=== PATIENT | male | born 1975 | race Caucasian/White ===

== ENCOUNTER 2020-03-24 09:01 | Inpatient (IN) | payer SELFPAY ==
[2020-03-24] MEDS ORDERED: Lorazepam 2 MG/ML VIAL ONE ×2 (09:18→16:02)
--- NOTE | 2020-03-24 09:34 | RAD ---
Exam: Chest one view HISTORY:Dyspnea Comparison: None FINDINGS: Cardiac silhouette: Normal Aorta: Unremarkable Pulmonary vessels: Normal Costophrenic angles: Clear LUNGS: No masses or consolidation. Pneumothorax: None Osseous abnormalities: None IMPRESSION: No acute cardiopulmonary process.
[2020-03-24 10:01] LABS: Hemoglobin 5.5 g/dL (14.0-18.0); INR-International Normal Ratio 2.1; Mean Corpuscular HGB CONC 32.6 g/dL (32.0-36.0); Mean Corpuscular Hemoglobin 37.4 pg (27.0-31.0); Mean Platelet Volume 11.1 fL (7.4-10.4); PTT 34.2 sec (22.9-36.1); Platelet Count 264 thou/uL (130-400); Prothrombin Time 23.6 sec (12.0-14.7); RBC Distribution Width 13.1 % (11.5-14.5); Red Blood Cell (RBC) Count 1.48 mill/uL (4.70-6.10); White Blood Cell (WBC) Count 40.1 thou/uL (4.8-10.8)
[2020-03-24 10:16] LABS: ALT (SGPT) 189 U/L (8-55); AST (SGOT) 385 U/L (5-34); Albumin 2.6 g/dL (3.5-5.0); Alkaline Phosphatase 103 U/L (40-110); BUN (Urea Nitrogen) 85 mg/dL (8.9-20.6); Bilirubin, Total 1.2 mg/dL (0.2-1.2); CK (CPK) 396 U/L (30-200); Calc. Creatinine Clearance 0 mL/min (70-130); Calcium 7.9 mg/dL (7.8-10.44); Chloride 91 mmol/L (98-107); Glucose 73 mg/dL (70-105); Lipase 192 U/L (8-78); Protein, Total 5.6 g/dL (6.0-8.3); Sodium 137 mmol/L (136-145)
[2020-03-24] MEDS ORDERED: Rocuronium Bromide 10 MG/ML (10ML VIAL) ONE (10:18)
[2020-03-24 10:22] LABS: Band 2 % (5-11); Crenated RBC SLIGHT = 1-5 cells (100X) (None Seen); Hypochromia SLIGHT = 6-15 cells (100X) (0-5/hpf); Large Platelets SLIGHT; Lymphocytes 13 % (21-51); MDiff Complete? YES; Metamyelocyte 1 % (0-0); Microcytosis SLIGHT = 6-15 cells (100X) (0-5/hpf); Monocytes 9 % (0-10); Neutrophil 75 % (42-75); Nucleated RBC 2 % (0); Platelet Morphology Comment Appears Adequate; Polychromasia SLIGHT = 2-3 cells (100X) (0-2/hpf); Reflex for Review?? YES; Toxic Granulation SLIGHT
[2020-03-24 10:26] LABS: Carbon Dioxide Less than 8 mmol/L (22-29)
[2020-03-24] MEDS ORDERED: EPINEPHrine 1 MG/10 ML Abboject SYRINGE ONE (10:31)
[2020-03-24] MEDS ORDERED: Pantoprazole 40 MG VIAL ONE (10:39)
[2020-03-24 10:45] LABS: CKMB 8.3 ng/mL (0-6.6)
[2020-03-24] MEDS ORDERED: Fentanyl 100 MCG/2 ML VIAL ONE (10:59)
[2020-03-24] MEDS ORDERED: Pantoprazole 80 MG, Admixture Fee 1 EACH in Sodium Chloride 0.9% 100 ML IVPB SCH (11:00)
[2020-03-24] MEDS ORDERED: Octreotide Acetate 1,250 MCG in Sodium Chloride 0.9% 250 ML 250 ML IVPB SCH (11:00)
--- NOTE | 2020-03-24 11:10 | RAD ---
Exam: Chest one view HISTORY:Central line placed Comparison: 03/24/2020 FINDINGS: Lines and tubes: Interval placement endotracheal tube, nasogastric tube and left-sided subclavian vas cular catheter. Cardiac silhouette: Normal Aorta: Unremarkable Pulmonary vessels: Normal Costophrenic angles: Clear LUNGS: No masses or consolidation. Pneumothorax: None Osseous abnormalities: None IMPRESSION: 1. Interval placement of lines and tubes as above. Otherwise, no significant interval change.
--- NOTE | 2020-03-24 11:15 | RAD ---
Exam: One view pelvis HISTORY: Patient fell 3 days ago. Pain. FINDINGS: Limited evaluation right femoral neck and right acetabulum. The possibility of a femoral ne ck/acetabular injury is raised. Limited evaluation of left femoral neck. Pelvic CT is recommended IMPRESSION: Pelvic CT is recommended.
[2020-03-24 11:27] LABS: Actual Bicarbonate (HCO3a) 4.8 mEq/L (22-28); Analyzer IN Cardio ER; Base Excess (BEa) -29.2 mEq/L (-2.0 to +3.0); CO2 Tension 33.5 mmHg (35.0-45.0); Calcium, Ionized (arterial) 0.92 mmol/L (1.12-1.30); Carboxyhemoglobin (COHb) 0.2 gm% (0.0-3.0); Potassium - ABG Lab 4.32 mmol/L (3.70-5.30)
[2020-03-24 11:31] LABS: O2 Tension (PaO2), arterial 618.6 mmHg (80.0-100.0); Puncture Site LRA; pH, Arterial 6.77 (7.35-7.45)
[2020-03-24 11:33] LABS: ALV-art Gradient 52.525 mmHg (0-20)
--- NOTE | 2020-03-24 11:33 | CT ---
Exam: Chest CT without contrast Abdomen CT without contrast Pelvic CT without contrast Thoracic and lumbar spine CT without contrast HISTORY: Patient fell 2 days ago. COVID exposure. Black stools. Correlation: None COMPARISON: None FINDINGS: Chest CT: Mediastinum: Limited evaluation by the absence of IV contrast. No mass, lymphadenopathy or hematoma. Aorta: Normal caliber. No periaortic fat stranding Heart: Normal heart Trachea and central bronchi: Endotracheal tube is identified, terminating above the orion. Pleural spaces: No pleural effusion Right lung: Right apical bleb. No consolidation or contusion. Minimal atelectatic change Left lung:Left apical blebs. No consolidation or contusion. Minimal atelectatic change Pneumothorax: None Abdomen CT: Gallbladder: Unremarkable Portal vein: Patent Solid organs: Limited evaluation by the absence of IV contrast. Heterogeneous attenuation of the live r likely due to areas of fatty infiltration and fatty sparing. No evidence of posttraumatic change in the solid organs. Technique limits evaluation. Lymphadenopathy: No gastrohepatic, retrocrural or periportal lymphadenopathy Kidneys: Bilaterally no obstructive uropathy. Mesentery: No mass, lymphadenopathy, free air or free fluid Alimentary canal: Limited evaluation by the absence of oral contrast. No evidence of a small bowel ob struction. Nasogastric tube terminates in the stomach. Normal-appearing ileocecal junction. Caliber appendix. There does appear to be some mucosal thickening with fatty infiltration of the mucosa invol ving the cecum, ascending colon and transverse colon. There is still fatty infiltration mucosa without significant mucosal thickening involving the descending colon. Occasional diverticulum in the descending colon. Pelvis CT: No mass, nephropathy, free air or free fluid. Presacral fat is preserved. Unremarkable urinary bladder. Osseous structures: CHEST: Sternum and clavicles are intact. Scapula are intact. There does not appear to be a right or l eft rib fracture. Pelvis: Sacral alar preserved. There are degenerative changes in the left and right SI joint. Intact bony pelvis. Obturator rings are intact. Contour of bilateral femoral heads and necks are maintained. No fracture Thoracic and lumbar spine CT: No fracture or malalignment. IMPRESSION: 1. No post traumatic change in the chest, abdomen or pelvis 2. Fatty infiltration of the colonic mucosa. There is evidence of mucosal thickening involving the ri ght hemicolon. Correlate for infectious or inflammatory colitis. Consider nonemergent colonoscopy. 3. There is a fatty sparing and hepatic steatosis in the liver.
[2020-03-24 11:34] LABS: Acetaminophen Less than 6.0 mcg/mL (10.0-30.0); Alcohol Less than 10 mg/dL (Less than 10); Salicylate Less than 8.0 mg/dL (15.0-30.0)
[2020-03-24] MEDS ORDERED: Vancomycin 1 GM/200 ML BAG ONE (11:44)
[2020-03-24] MEDS ORDERED: Cefepime 2 GM VIAL ONE (11:44)
[2020-03-24] MEDS ORDERED: Sodium Bicarb 50 MEQ/50 ML Abboject 8.4% SYRINGE ONE ×3 (11:44→12:57)
[2020-03-24 11:52] LABS: Bilirubin Negative (Negative); Blood, Urine 2+ (Negative); Clarity Extra Turbid (Clear); Glucose, Urine (Dipstick) Normal (Negative); Ketone, Urine 10 mg/dL (Negative); Leukocyte Negative Leu/uL (Negative); Nitrite Negative (Negative); Protein, Urine (Dipstick) 100 mg/dL (Neg-Trace); Specific Gravity, Urine 1.018 (1.002-1.036); Squamous Epithelial 0-3 HPF (0-3); Urobilinogen Normal mg/dL (Less than 2); WBC/HPF 0-3 HPF (0-3); pH, Urine 5.5 (5.0-9.0)
[2020-03-24] MEDS ORDERED: Ondansetron PF 4 MG/2 ML Vial IVP PRN ×2 (11:53→13:15)
[2020-03-24 11:54] LABS: SARS-CoV-2 NAA Rapid Test Not Detected (NotDetected)
[2020-03-24 11:57] LABS: Bacteria/HPF None Seen HPF (None Seen)
[2020-03-24 11:58] LABS: Amphetamine Not Detected (NotDetected); Barbiturates Screen Not Detected (NotDetected); Benzodiazepine Screen Not Detected (NotDetected); Cocaine Metabolite Screen Not Detected (NotDetected); Medtox Control Line Valid? VALID (VALID); Medtox Reader # READER 1; Methadone Not Detected (NotDetected); Methamphetamine Not Detected (NotDetected); Opiate Screen Not Detected (NotDetected); Oxycodone Screen Not Detected (NotDetected); Phencyclidine (PCP) Not Detected (NotDetected); THC/Cannabinoid Screen Not Detected (NotDetected); Tricyclic Screen Not Detected (NotDetected)
[2020-03-24 13:15] LABS: Troponin I 0.066 ng/mL (< 0.028)
[2020-03-24] MEDS ORDERED: Sodium Chloride 0.9% 1,000 ML IV SCH (13:15)
[2020-03-24] MEDS ORDERED: Ondansetron ODT 4 MG TAB SL PRN (13:15)
--- NOTE | 2020-03-24 14:58 | CON ---
DATE OF CONSULTATION: 03/24/2020 REASON FOR CONSULTATION: Upper GI bleeding. HISTORY OF PRESENT ILLNESS: Adair Puga is a 44 year old man who is being admitted to the ICU from the emergency department after presenting this morning. He has no known past medical or surgical history. His says he never goes to the doctor. He does take a lot of BC Powder and Aleve for arthritis pains multiple times per day. He also heavily drinks alcohol. She says he will go through about a half a gallon of whiskey on a daily basis and this has been his practice for a long time. Several days ago, he accidentally fell and had some bruising on the left side of his body. Shortly thereafter, he started having some melenic stools. She said his bowel movements have been jet black for the past several days. He started having some nausea and has had several episodes of dark emesis as well through this time. This morning, it became evident that he was a lot more ashen. He was very anxious. He was hypoxic and encephalopathic on presentation. When he presented to the emergency department, melena was found on rectal exam. Shortly after presentation, he had a drop in his blood pressures, and labs demonstrated hemoglobin of 5.5, INR 2.1, WBC 40.1, BUN 85, creatinine 4.75. He is acidotic with pH 6.77. COVID swab was negative. Because he was encephalopathic, yanking out his IVs, etc, he was sedated and endotracheally intubated. He got a central line. Orogastric tube was placed, and this has drawn out 800 mL so far of dark maroon gastric contents. He has had a few smaller melenic stools since arrival as well. He is being treated with massive transfusion protocol. He has already received 3 units of blood. He is getting some FFP and will get cryoprecipitate. He has been started on broad antibiotics with vancomycin, cefepime, and Levaquin. He was started on pantoprazole and octreotide infusions. The CT of the chest, abdomen, and pelvis demonstrated no evidence of free air. REVIEW OF SYSTEMS: Unable to obtain due to the patient being endotracheally intubated and sedated, encephalopathic on admission. PAST MEDICAL HISTORY: Alcohol abuse, arthritis. ALLERGIES: NO KNOWN DRUG ALLERGIES. OUTPATIENT MEDICATIONS: 1. Multivitamin daily. 2. BC Powder multiple times per day. 3. Aleve multiple times per day. SOCIAL HISTORY: The patient will drink about a half a gallon of whiskey per day. FAMILY HISTORY: Noncontributory. PHYSICAL EXAMINATION: VITAL SIGNS: Blood pressure 73/53, pulse 108, 100% oxygen saturation on ventilator. GENERAL: Critically ill, sedated and intubated. SKIN: He is pale. No jaundice. HEENT: Eyes, no scleral icterus. ENT, he is endotracheally intubated. Orogastric tube in place suctioning out some dark maroon fluid. LYMPH: No submandibular or supraclavicular lymphadenopathy. HEART: Regular, tachycardia. LUNGS: Clear to auscultation bilaterally. ABDOMEN: Nondistended. Bowel sounds hypoactive. EXTREMITIES: No peripheral edema. VESSELS: Radial pulses weak. NEUROLOGIC: The patient is sedated and intubated. LABORATORY STUDIES: WBC 40.1, hemoglobin 5.5, platelets 264, MCV 115. INR 2.1. Sodium 137, potassium 4.0, BUN 85, creatinine 4.75, chloride is 91, bicarb is less than 8. Total bilirubin 1.2, alkaline phosphatase 103, AST 385, ALT 189, albumin 2.6. The pH 6.77, PO2 of 618, pCO2 is 33.5, lipase 192, ammonia only 69. BNP only 34, CK-MB 8.3, troponin only 0.05. Urine drug screen negative. Serum salicylate, acetaminophen, and alcohol levels all negative. Flu and COVID swabs are negative. IMAGING STUDIES: Chest x-ray showed no acute processes. Pelvic x-ray shows possible right femoral and acetabular fractures. CT of the abdomen and pelvis demonstrates bilateral apical blebs. There is fatty liver. There is also some fatty infiltration of the colon, greater on the right than the left. No free air. ASSESSMENT AND PLAN: 1. Upper gastrointestinal bleed, acute, perhaps going on over the past 2 to 3 days. 2. Shock, hemorrhagic versus septic. 3. Elevated LFTs. 4. Alcohol abuse. 5. Chronic heavy nonsteroidal anti-inflammatory drugs use. The patient's presentation seems most consistent with hemorrhagic shock due to upper gastrointestinal bleeding over the past 2 to 3 days. He is quite ill and is getting massive transfusion protocol. Etiology of the bleed potentially could include ulcer bleed given his chronic nonsteroidal anti-inflammatory drugs use, but also consider possibility of variceal bleed with his chronic alcohol abuse. He is currently being stabilized and transferred to the ICU. Protonix and octreotide drips have been started appropriately as well as IV antibiotics. Continue with resuscitation efforts. We are going to plan for diagnostic EGD probably later this afternoon after discussion with ICU staff. Thank you for the consultation. Please call anytime with questions or concerns. Job ID: [id number] MTDD
[2020-03-24] MEDS ORDERED: Propofol 1,000 MG/100 ML VIAL IV ONE (15:22)
[2020-03-24 16:11] LABS: Anion Gap 39 mmol/L (10-20); BUN (Urea Nitrogen) 75 mg/dL (8.9-20.6); Calc. Creatinine Clearance 32 mL/min (70-130); Calcium 6.9 mg/dL (7.8-10.44); Carbon Dioxide 10 mmol/L (22-29); Chloride 95 mmol/L (98-107); Glucose 172 mg/dL (70-105); Potassium 3.6 mmol/L (3.5-5.1); Sodium 140 mmol/L (136-145)
[2020-03-24] MEDS ORDERED: Propofol BOLUS 1,000 MG/100 ML VIAL IV PRN (16:15)
[2020-03-24] MEDS ORDERED: DISCONTINUE PREVIOUS NARCOTIC PAIN MEDICATIONS AND BENZODIAZEPINES FS SCH (16:15)
[2020-03-24] MEDS ORDERED: Fentanyl BOLUS 250 ML IVPB PRN (16:15)
[2020-03-24] MEDS: Thiamine HCl 200 MG/2 ML VIAL SLOW IVP SCH (16:16)
[2020-03-24] MEDS: Multivitamins, Adult 10 ML, Folic Acid 1 MG, Thiamine HCl 100 MG in Dextrose 5 %-0.45 %... IV SCH (16:16)
[2020-03-24 16:17] LABS: Troponin I 0.199 ng/mL (< 0.028)
--- NOTE | 2020-03-24 16:57 | HP ---
CHIEF COMPLAINT: Black tarry stools as well as hematemesis. HISTORY OF PRESENT ILLNESS: A 44-year-old male without significant past medical history and has not seen healthcare provider for a long time, daily alcohol use, heavy drinks with whiskey, presenting with upper GI bleed. After Gagandeep, roughly 4 days ago, he was taking down the [place] tree when he fell and had an episode of hematemesis. Shortly after that, he had a black tarry stool. suggested that they should visit the hospital. However, patient said "we can go on Thursday." So for the last 2 days, he did have intermittently black tarry stool as well as hematemesis. On arrival to the ER, he is saturating 88% on room air. His heart rate is in 120s and blood pressure systolic 120. Rectal exam showed runny stool and quite bright red. In the ER, massive transfusion protocol initiated for a total of 4 units of pRBC. The patient was obtunded, intubated for acute hypoxic respiratory failure. An OG-tube inserted and 900 mL of dark blood emptied. He was given Protonix, octreotide as well as cefepime, vancomycin and Levaquin. CT abdomen and chest, no acute free air but fatty liver. His INR was 2.1. Mild elevation in transaminases. PH also was 7.7, mostly suggestive of metabolic abnormalities. The patient is intubated, will be transferring shortly to the unit. I gathered all this information through his , Ramandeep. REVIEW OF SYSTEMS: Not obtainable. PAST MEDICAL HISTORY: The patient probably has cirrhosis but undiagnosed at this time as the patient has not had any healthcare visit for a long time. SOCIAL HISTORY: Smokes daily. Drinks heavily whiskey. FAMILY HISTORY: Father this year with old age. Mother is alive and she has heart problems. PHYSICAL EXAMINATION: GENERAL: He is intubated currently. VITAL SIGNS: His saturations are around 100%. His blood pressure 122/74. On vent. CARDIOVASCULAR: Regular rate and rhythm. No murmurs appreciated. LUNGS: With anterior auscultation did not appreciate much abnormal sounds. ABDOMEN: Quite protuberant, distended, but soft and bowel sounds positive. EXTREMITIES: I did not appreciate any rash or pitting edema. NEUROLOGIC: No focal deficits. LABORATORY DATA: His initial hemoglobin is 5.5, platelets were 264 with WBC of 40.1. His chemistry panel showed a bicarb of 8, creatinine 4.75. CK is about 396, troponin 0.052, and lipase 192. AST 385, ALT 189, alkaline phosphatase 103. CT chest, abdomen, pelvis showed fatty infiltration of the colonic mucosa, hepatic steatosis in the liver. IMPRESSION AND PLAN: This is a 44-year-old male with a history of alcohol abuse, presenting with the following. 1. Hemorrhagic shock, requiring massive transfusion. 2. Upper GI bleed secondary to possibly variceal bleed versus peptic ulcer disease versus NSAID induced peptic ulcer disease. 3. Hypoxic respiratory failure. 4. Coagulopathy secondary to cirrhosis with underlying history of alcohol abuse. 5. Transaminase elevations, probably consistent with alcohol abuse with AST twice the ALT. 6. Acute kidney injury with a creatinine of 4.75. 7. Hypotension, currently not requiring pressors at the moment. 8. Alcohol abuse. 9. COVID negative. 10. Blood alcohol level is less than 10. 11. UA has crystals, but no bacteria, no leukocyte esterase or nitrite. 12. Elevated troponin secondary to acute hemorrhagic shock. 13. The patient has received bicarb infusion as well as octreotide and Protonix. We will continue with Protonix. He is getting an RBC transfusion. We will repeat H and H later this evening. Metabolic acidosis resolves once underlying Acuity improves. 14. We will provide low gentle hydration for kidney injury given that he is going to receive several blood products including fresh frozen plasma. 15. Acute pancreatitis with lipase of 192, again suggesting alcohol abuse. 16. CT abdomen did not show any abnormality in the gallbladder or pancreas. We will follow the clinical course. 17. A Pulmonary consult, GI, as well as Nephrology has been consulted. 18. Avoid any anticoagulants, NSAIDs including aspirin. 19. is Ramandeep, [phone]. 20. He is full code. Job ID: [id number] [facility]
[2020-03-24] MEDS: Lorazepam 2 MG/ML VIAL SLOW IVP PRN ×2 (17:37→23:50)
[2020-03-24] MEDS ORDERED: Norepinephrine 8 MG/0.9% NS 250 ML ONE (17:57)
--- NOTE | 2020-03-24 20:15 | OP ---
DATE OF PROCEDURE: 03/24/2020 This is a GI endoscopy note. ASSISTANCE SURGEON: None. PROCEDURE PERFORMED: EGD, diagnostic. INDICATIONS: 1. Acute upper gastrointestinal bleeding. 2. Acute blood loss anemia. MEDICATIONS: See ICU nursing record. FINDINGS: After discussion of the risks, benefits, and alternatives of the procedure, informed consent was obtained and witnessed. Pre-endoscopic cardiopulmonary examination was satisfactory. Time-out was performed before sedation was achieved. Sedation was achieved with nurse sedation protocol in the intensive care unit. The procedure was performed at the bedside in his room. A Pentax adult upper endoscope was placed into the oropharynx and passed through the cricopharyngeus under direct visualization. There was diffuse esophagitis throughout the esophagus, particularly severe in the distal 2/3 of the esophagus. I would classify this is LA grade D for at least the distal 12 cm of the esophagus down to 42 cm which is the area of the gastroesophageal junction. There is circumferential ulceration throughout this area. There are a few areas that had the appearance of tiny visible vessels. However, there were no high-risk stigmata of bleeding such as adherent clot or any active oozing from either of these areas in the very distal esophagus and therefore, no endoscopic therapy was applied. There was no esophageal varices noted. The endoscope was advanced down into the stomach. Forward and retroflexed views of the entire gastric mucosa were obtained. There was a mild amount of old blood within the gastric fundus, but frankly less than I expected. This was completely suctioned and good views of the gastric mucosa were obtained. There was diffuse gastritis throughout the entire stomach characterized by erythema and friability. Several areas of minor oozing and adherent blood scattered throughout the entire stomach. However, there were no large erosions or ulcerations noted within the stomach. I did not obtain biopsies on this examination. The endoscope was advanced through the pylorus and into the 1st, 2nd, 3rd portions of the duodenum. There was some generalized mucosal edema throughout this area and mild friability, but no bleeding lesion found in the duodenum. Retroflexed views in the stomach confirmed no evidence of any gastric varices. At this point, the upper endoscope was completely withdrawn and the patient allowed to recover. The patient tolerated the procedure well. There were no immediate postprocedure complications. IMPRESSION: 1. LA grade D severe erosive esophagitis with circumferential ulceration in the distal 2/3 of the esophagus. A couple of small visible vessels distally with no high-risk stigmata for rebleeding, no adherent clot, no endoscopic therapy applied. 2. Diffuse moderate to severe gastritis, though with no significant erosions or ulcerations noted within the stomach. 3. No esophageal or gastric varices noted. 4. No active bleeding on this examination. RECOMMENDATION: 1. Continue with the pantoprazole drip. 2. Octreotide can be discontinued. 3. Continue with antibiotics. 4. Continue to trend H and H, transfuse as needed. 5. GI will follow closely. Please call anytime with questions or concerns or if there is concern for rebleeding. 6. The patient is going to be at high risk for alcohol withdrawal/delirium tremens. 7. The patient is going to need to quit all alcohol use going forward. 8. It may be helpful to keep the head of the bed slightly elevated, from a reflux standpoint. Job ID: [id number]
[2020-03-24] MEDS: Pantoprazole 80 MG in Sodium Chloride 0.9% 100 ML IVPB SCH (20:25)
[2020-03-24] MEDS: Albumin 25% 25 GM/100 ML BOT IVPB SCH (23:43)
[2020-03-25] MEDS: Propofol 1,000 MG/100 ML VIAL IV PRN ×5 (00:26→22:04)
[2020-03-25] MEDS: fentaNYL Citrate/PF 2,000 MCG in Sodium Chloride 0.9% 60 ML IV SCH ×3 (00:34→23:34)
[2020-03-25 04:20] LABS: PTT 35.5 sec (22.9-36.1)
[2020-03-25 04:21] LABS: INR-International Normal Ratio 1.7; Prothrombin Time 20.6 sec (12.0-14.7)
[2020-03-25 04:29] LABS: ALT (SGPT) 1399 U/L (8-55); Albumin 3.1 g/dL (3.5-5.0); Alkaline Phosphatase 89 U/L (40-110); Bilirubin, Direct 1.5 mg/dL (0.1-0.3); Bilirubin, Total 2.1 mg/dL (0.2-1.2); Protein, Total 5.7 g/dL (6.0-8.3)
[2020-03-25 04:34] LABS: AST (SGOT) Greater than 3500 U/L (5-34)
[2020-03-25] MEDS: Albumin 25% 25 GM/100 ML BOT IVPB SCH ×4 (05:01→23:58)
[2020-03-25] MEDS: Norepinephrine 8 MG in Dextrose 5% in Water 242 ML IVPB PRN ×2 (06:26→22:05)
[2020-03-25] MEDS: Lorazepam 2 MG/ML VIAL SLOW IVP PRN ×4 (07:34→17:31)
[2020-03-25] MEDS: Pantoprazole 80 MG in Sodium Chloride 0.9% 100 ML IVPB SCH ×2 (09:52→20:05)
[2020-03-25] MEDS: Folic Acid 1 MG TAB PO SCH (10:32)
[2020-03-25 10:39] LABS: Hemoglobin 10.3 g/dL (14.0-18.0); Mean Corpuscular HGB CONC 36.3 g/dL (32.0-36.0); Mean Corpuscular Volume 90.8 fL (78.0-98.0); Mean Platelet Volume 9.7 fL (7.4-10.4); Platelet Count 127 thou/uL (130-400); RBC Distribution Width 15.8 % (11.5-14.5); Red Blood Cell (RBC) Count 3.13 mill/uL (4.70-6.10); White Blood Cell (WBC) Count 18.8 thou/uL (4.8-10.8)
[2020-03-25 10:47] LABS: Anion Gap 18 mmol/L (10-20); BUN (Urea Nitrogen) 76 mg/dL (8.9-20.6); Calc. Creatinine Clearance 39 mL/min (70-130); Calcium 7.2 mg/dL (7.8-10.44); Carbon Dioxide 25 mmol/L (22-29); Chloride 99 mmol/L (98-107); Glucose 133 mg/dL (70-105); Sodium 139 mmol/L (136-145)
[2020-03-25 10:56] LABS: Potassium 2.8 mmol/L (3.5-5.1)
[2020-03-25] MEDS ORDERED: Cefepime 1 GM in Sodium Chloride 0.9% 100 ML IVPB SCH (11:00)
[2020-03-25 11:11] LABS: Band 3 % (5-11); Hypochromia SLIGHT = 6-15 cells (100X) (0-5/hpf); Large Platelets SLIGHT; Lymphocytes 19 % (21-51); MDiff Complete? YES; Monocytes 5 % (0-10); Neutrophil 73 % (42-75); Nucleated RBC 4 % (0); Platelet Morphology Comment Appears Decreased; Polychromasia SLIGHT = 2-3 cells (100X) (0-2/hpf)
--- NOTE | 2020-03-25 11:52 | PRG ---
DATE OF SERVICE: SUBJECTIVE: Mr. Puga remains intubated in the ICU. Nursing reports he had only one small smear of melenic-appearing stool since his endoscopy yesterday. He responded well to initial transfusion with hemoglobin going up to 11.0, fairly stable this morning at 10.3. He is requiring high doses of sedation due to agitation and what is likely delirium tremens. OBJECTIVE: VITAL SIGNS: Temperature 99.1, got up to 99.7 last night, pulse 90, blood pressure 102/66, 100% oxygen saturation on ventilator. GENERAL: Critically ill, sedated, and intubated. HEART: Regular rate and rhythm. LUNGS: Clear breath sounds bilaterally. ABDOMEN: Nondistended. Does not withdraw to palpation. EXTREMITIES: No peripheral edema. LABORATORY STUDIES: WBC down to 18.8, hemoglobin stable at 10.3, platelets 127. INR 1.7. Sodium 139, potassium 2.8, BUN 76, creatinine down to 3.03, calcium 7.2, glucose 133, total bilirubin 2.1, direct bilirubin 1.5, alkaline phosphatase 89. AST shot up to greater than 3500, ALT shot up to 1399. Troponin 0.199. Albumin 3.1. ASSESSMENT AND PLAN: 1. Hemorrhagic shock, with severe upper gastrointestinal bleeding on admission, now resolved. 2. Acute blood loss anemia, good response to initial massive transfusion protocol, stable hemoglobin this morning at 10.3. 3. Severe erosive esophagitis with visible vessels, demonstrated on EGD yesterday. There is no further evidence of bleeding since endoscopy yesterday. No endoscopic therapy was applied. I did not see any varices. Octreotide can be discontinued. We will continue on the pantoprazole continuous infusion for now. Please do not place any nasogastric or orogastric tube at this time. 4. Shock liver. Note that he did have some degree of AST and ALT elevation on presentation consistent with alcoholic liver disease, but now more significant transamination in the context of presenting with hemorrhagic shock. This represents shock liver. Expect slow improvement with good hemodynamic support. 5. Alcohol abuse. 6. Likely alcoholic cirrhosis. The patient is going to need to quit drinking completely going forward. 7. Alcohol withdrawal. The patient is still requiring heavy doses of sedation. Management per Primary Service. Job ID: [id number]
--- NOTE | 2020-03-25 12:10 | CON ---
DATE OF CONSULTATION: 03/24/2020 he presented with melena and encephalopathy as well as hypotension. His pH was 6.77 surprisingly. He was subsequently intubated, sedated, and paralyzed, and has received a massive transfusion. We were consulted as he arrived in the Critical Care Unit. PAST MEDICAL HISTORY: Otherwise, unknown. SOCIAL HISTORY: He is a heavy drinker, not reportedly a daily smoker. ALLERGIES: REPORTS NO DRUG ALLERGIES. FAMILY HISTORY: Negative for lung disease in early age. REVIEW OF SYSTEMS: Cannot be obtained because of intubation. PHYSICAL EXAMINATION: VITAL SIGNS: Blood pressure 122/74, heart rate is 120, respiratory rate is 30. HEENT: Pupils are reactive. Sclerae are anicteric. NECK: Supple. LUNGS: Clear. HEART: Regular rhythm. ABDOMEN: Soft. EXTREMITIES: Without clubbing or cyanosis. He has trace edema. Hemoglobin went from 5.5 this morning to 11 at 1422. His pH has gone from 6.77 to over 7.2. At the time of this dictation, blood gas has not been entered in the computer. IMPRESSION: Significant GI bleeding with severe metabolic acidosis associated with hypotension, blood loss. This is improving with mechanical ventilation, bicarb, and volume resuscitation. We will follow Gastroenterology has been consulted. Critical care time, 30 minutes. Job ID: [id number] MTDD
[2020-03-25] MEDS: Potassium Chloride 40 MEQ in Sodium Chloride 0.9% 250 ML 200 ML IVPB SCH ×2 (12:56→15:31)
--- NOTE | 2020-03-25 13:08 | PDOC.HOSPP ---
- Subjective Encounter Date: 03/25/20 Encounter Time: 10:28 Subjective: Patient seen this morning. Discussed with and RN. He is hemoglobin is stable. Octreotide drip stopped. Continue with the Protonix drip. He is still on Levophed and propofol. He did not had any tarry stool last night when he had a bowel movement. And no hematemesis. No NG or OG tube. On vent. Still on Levophed at 15 mics. Blood pressure 118/69 in the monitor. Has a Patterson. - Objective Vital Signs & Weight: Vital Signs (12 hours) Temp Pulse Resp 03/25/20 10:23 90 03/25/20 08:17 90 03/25/20 06:00 30 H 03/25/20 04:00 99.1 F 30 H 03/25/20 02:28 100 03/25/20 02:00 30 H Weight Weight 198 lb 3.129 oz Most Recent Monitor Data Heart Rate from ECG 89 NIBP 102/66 NIBP BP-Mean 78 Respiration from ECG 0 SpO2 100 I&O: 03/24/20 03/25/20 03/26/20 06:59 06:59 06:59 Intake Total 2094.1 Output Total 1242 200 Balance 852.1 -200 Result Diagrams: 03/25/20 10:20 03/25/20 10:20 Hospitalist ROS - Medication Medications: Active Medications Generic Name Dose Route Start Last Admin Trade Name Freq PRN Reason Stop Dose Admin Albumin Human 25 gm 03/24/20 23:59 03/25/20 12:19 Albumin 25% 25 Gm/100 Ml Bot IVPB 03/25/20 23:59 25 gm Q6HR PATRICK Administration Folic Acid 1 mg 03/25/20 09:00 03/25/20 10:32 Folic Acid 1 Mg Tab PO 1 mg DAILY PATRICK Administration Pantoprazole Sodium 80 mg/ 100 mls @ 10 mls/hr 03/24/20 12:00 03/25/20 09:52 Sodium Chloride IVPB 100 mls INF PATRICK Administration Fentanyl Citrate 2,000 mcg/ 100 mls @ 0 mls/hr 03/24/20 12:30 03/25/20 12:16 Sodium Chloride IV 04/23/20 12:30 100 mls INF PATRICK Administration Protocol Per Protocol Multivitamins 10 ml/ Folic 1,011.2 mls @ 50 mls/hr 03/24/20 16:00 03/24/20 16:16 Acid 1 mg/ Thiamine HCl 100 mg IV 03/27/20 12:14 1,011.2 mls / Dextrose/Sodium Chloride 1600 PATRICK Administration Cefepime HCl 1 gm/ Sodium 100 mls @ 200 mls/hr 03/25/20 11:00 03/25/20 10:33 Chloride IVPB 100 mls Q24HR PATRICK Administration Norepinephrine Bitartrate 8 mg 250 mls @ 0 mls/hr 03/24/20 18:15 03/25/20 06:26 / Dextrose/Water IVPB 250 mls INF PRN Administration TO MAINTAIN MAP > 65 Protocol As Directed Potassium Chloride 40 meq/ 220 mls @ 110 mls/hr 03/25/20 13:00 03/25/20 12:56 Sodium Chloride IVPB 03/25/20 14:59 220 mls Q1H PATRICK Administration Lorazepam 2 mg 03/24/20 16:15 03/25/20 10:33 Lorazepam 2 Mg/Ml Vial SLOW IVP 04/23/20 16:15 2 mg Q1H PRN Administration Breakthrough agitation Propofol 1,000 mg 03/24/20 16:15 03/25/20 12:19 Propofol 1,000 Mg/100 Ml Vial IV 04/23/20 16:15 1,000 mg INF PRN Administration TO ACHIEVE GOAL RASS Protocol Thiamine HCl 100 mg 03/24/20 16:00 03/24/20 16:16 Thiamine Hcl 200 Mg/2 Ml Vial SLOW IVP 100 mg 1600 PATRICK Administration - Exam General - other findings: On vent and sedated Eye: PERRL ENT: normocephalic atraumatic Neck: supple Heart: RRR, normal peripheral pulses Respiratory: CTAB, normal chest expansion Gastrointestinal: soft, normal bowel sounds Extremities: 1+ LE edema Neurological: cranial nerve grossly intact, no focal deficits Psychiatric: not oriented Hosp A/P - Plan Hemorrhagic shock secondary to GI bleed and hypotension Acute blood loss anemia -Massive transfusion protocol and he got 4 units of transfusion. -And FFP -Status post EGD showing severe erosive esophagitis with visible vessels; no varices Hypoxic respiratory failure acute and requiring intubation --Appreciate the help from critical care management. Shock liver secondary to hypoperfusion as well as underlying history of alcoholic cirrhosis Pancreatitis with a high lipase level and CT showing normal pancreas. Alcohol abuse Alcoholic cirrhosis --Trending LFT as well as lipase -Strict abstinence of alcohol - counseling when able -Follow-up with B12 folate and vitamin D level. -Banana bag x 3 d Hypocalcemia -corrected calcium 7.9 Acute kidney injury due to hemorrhagic shock --Creatinine is improving Hypokalemia -Replacing the IV fluid and repeat the level this evening. Elevated troponin secondary to type II demand ischemia Echo showed EF of 55% mildly enlarged right ventricular cavity. Covid negative Full code
[2020-03-25 14:21] LABS: Hemoglobin 10.4 g/dL (14.0-18.0)
--- NOTE | 2020-03-25 14:22 | PDOC.PALCO ---
Palliative Care Consult - Consult Details Requesting Physician: Dr Umaña Reason for Consult: family support, coping issues Family Members Present: Ramandeep - Pertinent HPI Patient is a 44 year old male with a known significant history of alcohol abuse. states he has not had a consistent primary care provider. 4 days prior to presentation to hospital patient fell and experienced an episode of hematemesis, paired with black tarry stool. He did not desire to seek care at the emergency room at that time. Over the next days he experienced black tarry stools and intermittent hematemesis. Presented to the emergency room with poor o2 sa turation, tachycardia, bright red blood per rectum. Given PRBC in the emergency room, patient became obtunded and was intubated for acute hypoxia. OG inserted and 900ml of dark blood was emptied. Admitted to CCU for medical management. - Social History Smoking Status: Unknown if ever smoked Alcohol Use: heavy, daily Drug Use History: none Living Situation: - Medications MAR Reviewed: Yes - Allergies Allergies/Adverse Reactions: Allergies Allergy/AdvReac Type Severity Reaction Status Date / Time No Known Drug Allergies Allergy Unverified 03/24/20 10:48 - Subjective Intubated, sedated, at bedside. - ROS Non Response: due to endotracheal tube, due to mental status - Objective Vital Signs: Vital Signs - Most Recent Temp Pulse Resp BP Pulse Ox 99.1 F 90 30 H 100 03/25/20 04:00 03/25/20 10:23 03/25/20 06:00 03/24/20 19:30 Palliative Performance Scale: 20 - Physical Exam Constitutional: encephalitic, ill appearing HEENT: moist MMs Respiratory: no rhonchi, no wheezing, unlabored breathing Deviation from normal: intubated, mechanical ventilation Cardiovascular: RRR, diminished peripheral pulses Gastrointestinal: soft, positive bowel sounds Genitourinary: morgan catheter Musculoskeletal: no edema, pulses present Neurology: no focal deficits Skin: cap refill <2 seconds, no lesions, no rash Deviation from normal: encephalopathic - Problem List (1) Hemorrhagic shock Code(s): R57.8 - OTHER SHOCK Current Visit: Yes Status: Acute (2) Respiratory failure requiring intubation Code(s): J96.90 - RESPIRATORY FAILURE, UNSP, UNSP W HYPOXIA OR HYPERCAPNIA Current Visit: Yes Status: Acute (3) Alcoholic cirrhosis of liver Code(s): K70.30 - ALCOHOLIC CIRRHOSIS OF LIVER WITHOUT ASCITES Current Visit: Yes Status: Acute (4) Palliative care encounter Code(s): Z51.5 - ENCOUNTER FOR PALLIATIVE CARE Current Visit: Yes Status: Acute - Plan/Recommendations Plan: Life review with patient Ramandeep. She relays that he has had total of 4 DWI, and had not fully stopped drinking even prior to admission. He was just able to consume less. He has 6 children, three of whom he communicates with. She has relayed his health status to them. He has not sought health care in the past. She states that she has been encouraged to attend [employer] by her [id number], she plans on following through with this. Discussed that she can find local meetings on the [facility] website. Therapeutic listening and emotional support. [50] minutes spent on this encounter with >50% of the time in counseling and coordination of care. Thank you for this very appropriate consult.
[2020-03-25 14:39] LABS: ALT (SGPT) 1533 U/L (8-55); Albumin 3.2 g/dL (3.5-5.0); Alkaline Phosphatase 90 U/L (40-110); Bilirubin, Direct 1.7 mg/dL (0.1-0.3); Bilirubin, Total 2.4 mg/dL (0.2-1.2); Protein, Total 5.9 g/dL (6.0-8.3)
[2020-03-25 14:45] LABS: AST (SGOT) Greater than 3500 U/L (5-34)
[2020-03-25 15:07] LABS: Vitamin B12 Greater than 2000 pg/mL (211-911)
--- NOTE | 2020-03-25 15:20 | CON ---
DATE OF CONSULTATION: 03/25/20 HISTORY OF PRESENT ILLNESS: Mr. Puga is a 44-year-old white male who was admitted for an upper GI bleed. He underwent an emergent upper GI endoscopy yesterday with Dr. Brennan Regan. He was also symptomatically anemic on presentation. We are currently being consulted for his acute kidney injury. The patient has been formally evaluated by GI and he underwent an upper GI endoscopy, which was done by Dr. Regan at that time. He was also found to have underlying alcoholic cirrhosis. He had abnormal liver function tests, may represent to a shock liver. REVIEW OF SYSTEMS: Currently, we could not obtain since the patient is intubated and sedated. MEDICATIONS: Currently on: 1. Status post albumin infusion. 2. Levaquin 750 mg IV every 2 days. 3. P.r.n. morphine. 4. He is on norepinephrine drip. 5. Octreotide, currently on hold. 6. Protonix 80 mg IV daily. 7. P.r.n. potassium replacement. 8. Diprivan drip. 9. Thiamine 100 mg IV daily. PAST MEDICAL HISTORY: 1. The patient has history of cirrhosis. 2. Recently status post upper GI bleed. PAST SURGICAL HISTORY: The patient is status post upper GI endoscopy. SOCIAL HISTORY: The patient lives in the [facility] area. He is a daily smoker. He does take heavy alcohol intake per his 's history. FAMILY HISTORY: No family history of ESRD. ALLERGIES: UNKNOWN. TRAUMA: None. IMMUNIZATION: Unknown. HOSPITALIZATIONS: Please see past medical history. PHYSICAL EXAMINATION: VITAL SIGNS: Blood pressure is 103/65, heart rate 101, respiratory rate 16, O2 saturation 100%. GENERAL: The patient is intubated on ventilator support. SKIN: Adequate turgor. HEENT: He has slightly pale conjunctivae. Anicteric sclerae. NECK: No neck mass. No carotid bruits. No JVD. CHEST: No deformities. LUNGS: Clear breath sounds. No wheezing. No crackles. HEART: Normal sinus rhythm. No murmur. No gallops. No rubs. ABDOMEN: Globular, soft, and nontender. No masses. EXTREMITIES: No edema. No deformities. LABORATORY DATA: On 03/25/2020: Hemoglobin 10.4, hematocrit 27.9. Sodium 139, potassium 2.8, chloride 99, carbon dioxide 25, BUN 76, creatinine 3.03, GFR 22 mL/minute, and calcium 7.2. AST greater than 3500, ALT 1399, and albumin 3.1. On 03/24/2020, creatinine 3.68. On 03/24/2020 at 9:26 a.m., creatinine 4.75. ASSESSMENT AND PLAN: 1. Acute kidney injury, this is most likely hemodynamically-mediated renal dysfunction secondary to his GIg bleed. He has received several units of packed red blood cells. He is currently receiving albumin infusion. My bias is to document urinalysis to rule out any superimposed acute tubular necrosis. Start lactated Ringer's at 100 mL to 125 mL/hour. I do not find any indication for any dialytic intervention with this patient. 2. Status post upper gastrointestinal bleed. GI following. P.r.n. blood transfusion. 3. Liver cirrhosis ?, continue supportive care. Please note, this patient is an alcoholic. Thank you for the consult. We will continue to follow. Job ID: [id number] MTDD
[2020-03-25] MEDS: Lactated Ringer's 1,000 ML IV SCH ×2 (15:30→22:04)
[2020-03-25] MEDS: Thiamine HCl 200 MG/2 ML VIAL SLOW IVP SCH (15:34)
--- NOTE | 2020-03-25 16:08 | PRG ---
DATE OF SERVICE: 03/25/2020 SUBJECTIVE: Adair Puga remains mechanically ventilated. He is sedated. He is in no distress. I met with the and answered all of her questions. OBJECTIVE: VITAL SIGNS: Blood pressure 110/69, heart rate is 87, respiratory rates per mechanical ventilation, oximetry is 100%. LUNGS: Clear. HEART: Regular rhythm. ABDOMEN: Soft, nontender. EXTREMITIES: Without asymmetry. LABORATORY STUDIES: He has no chest x-ray today. Echocardiogram showing normal ejection fraction. White count is 18.8, hemoglobin 10.3, platelets 127. Sodium 139, potassium 2.8, chloride 99, bicarb 25, BUN 76, and creatinine 3.03, creatinine was 4.75 on admission. IMPRESSION: 1. Gastrointestinal blood loss and intravascular volume depletion, presenting with severe metabolic acidosis, it is resolved. 2. Extremely heavy alcohol use. Check a magnesium level and a phosphorus level in the morning. We will also do a blood gas in the morning. He may be weanable in the morning, but his acid-base disorders resolved. Critical care time 30 min. Job ID: [id number] MTDD
--- NOTE | 2020-03-25 16:08 | CON ---
DATE OF CONSULTATION: HISTORY OF PRESENT ILLNESS: This is a 44-year-old gentleman, who presented with respiratory failure and was noted to have an elevated troponin level. The patient's reports that he has no previous cardiac history. The patient does have a long history of tobacco and ethanol abuse. The patient's says that he previously reported having chest discomfort. The patient was admitted with a severe GI hemorrhage. He is intubated and unable to give any history. PAST MEDICAL HISTORY: Significant for alcoholism. PAST SURGICAL HISTORY: He has had hand surgery. SOCIAL HISTORY: Smokes several packs per day and a long history of ethanol abuse. ALLERGIES: NO KNOWN DRUG ALLERGIES. PHYSICAL EXAMINATION: GENERAL: This is an intubated gentleman. VITAL SIGNS: Blood pressure of 104/71. NECK: No jugular venous distention. LUNGS: Coarse breath sounds bilateral. HEART: Regular rate and rhythm. Normal S1 and S2. ABDOMEN: Distended with no bowel sounds. EXTREMITIES: Trace edema. LABORATORY DATA: Sodium is 139, potassium 2.8, chloride 99, bicarbonate 25, BUN 76, and creatinine 3.0. AST was greater than 3500. Troponin was 0.199. BNP was 34. EKG sinus tachycardia, otherwise nonspecific T-wave abnormality. Echocardiogram, normal left ventricular ejection fraction of 50% to 55%. ASSESSMENT AND PLAN: This gentleman presents with severe gastrointestinal hemorrhage, was noted to have an elevated troponin level. From a cardiac standpoint, there is no evidence this is an acute coronary syndrome. We will follow this patient with you through his hospitalization. Critical care note, time is 30 minutes. Job ID: [id number] MTDD
[2020-03-25] MEDS: Multivitamins, Adult 10 ML, Folic Acid 1 MG, Thiamine HCl 100 MG in Dextrose 5 %-0.45 %... IV SCH (16:44)
[2020-03-25 16:55] LABS: Bacteria/HPF None Seen HPF (None Seen); Bilirubin Negative (Negative); Blood, Urine 1+ (Negative); Clarity Clear (Clear); Glucose, Urine (Dipstick) Normal (Negative); Ketone, Urine Trace mg/dL (Negative); Leukocyte 25 Leu/uL (Negative); Nitrite Negative (Negative); Protein, Urine (Dipstick) 20 mg/dL (Neg-Trace); RBC/HPF 0-3 HPF (0-3); Specific Gravity, Urine 1.023 (1.002-1.036); Squamous Epithelial 0-3 HPF (0-3); Urobilinogen Normal mg/dL (Less than 2)
[2020-03-26] MEDS: Morphine 2 MG/ML VIAL SLOW IVP PRN (02:30)
[2020-03-26 04:20] LABS: Anion Gap 18 mmol/L (10-20); BUN (Urea Nitrogen) 57 mg/dL (8.9-20.6); Calc. Creatinine Clearance 58 mL/min (70-130); Calcium 7.7 mg/dL (7.8-10.44); Carbon Dioxide 22 mmol/L (22-29); Chloride 104 mmol/L (98-107); Glucose 100 mg/dL (70-105); Sodium 141 mmol/L (136-145)
[2020-03-26 04:31] LABS: Band 11 % (5-11); Hemoglobin 10.1 g/dL (14.0-18.0); Hypochromia SLIGHT = 6-15 cells (100X) (0-5/hpf); Lymphocytes 18 % (21-51); MDiff Complete? YES; Mean Corpuscular HGB CONC 36.9 g/dL (32.0-36.0); Mean Corpuscular Hemoglobin 33.5 pg (27.0-31.0); Mean Corpuscular Volume 90.8 fL (78.0-98.0); Mean Platelet Volume 10.1 fL (7.4-10.4); Monocytes 1 % (0-10); Neutrophil 70 % (42-75); Platelet Count 124 thou/uL (130-400); Platelet Morphology Comment Appears Adequate; RBC Distribution Width 15.7 % (11.5-14.5); Red Blood Cell (RBC) Count 3.01 mill/uL (4.70-6.10); White Blood Cell (WBC) Count 16.2 thou/uL (4.8-10.8)
[2020-03-26 04:32] LABS: ALT (SGPT) 1681 U/L (8-55); Albumin 3.6 g/dL (3.5-5.0); Alkaline Phosphatase 84 U/L (40-110); Bilirubin, Total 3.1 mg/dL (0.2-1.2); Protein, Total 6.3 g/dL (6.0-8.3)
[2020-03-26 04:38] LABS: Phosphorus Less than 1.0 mg/dL (2.3-4.7); Potassium 2.7 mmol/L (3.5-5.1)
[2020-03-26 04:44] LABS: AST (SGOT) Greater than 3500 U/L (5-34)
[2020-03-26] MEDS: Lactated Ringer's 1,000 ML IV SCH ×3 (05:50→21:34)
[2020-03-26] MEDS: Propofol 1,000 MG/100 ML VIAL IV PRN ×3 (05:51→21:34)
[2020-03-26] MEDS ORDERED: Potassium Phosphate 30 MMOL in Sodium Chloride 0.9% 500 ML IVPB SCH (06:30)
[2020-03-26] MEDS ORDERED: Magnesium Sulfate 3 GM in Sodium Chloride 0.9% 100 ML IVPB SCH (06:30)
[2020-03-26] MEDS: Lorazepam 2 MG/ML VIAL SLOW IVP PRN ×3 (07:30→20:22)
--- NOTE | 2020-03-26 07:57 | RAD ---
Exam: Chest one view HISTORY:Ventilated patient. Respiratory distress. Comparison: 03/24/2020 FINDINGS: Lines and tubes: Interval normal of nasogastric tube. Stable endotracheal tube and left-sided subclav christian vascular catheter. Cardiac silhouette: Normal Aorta: Unremarkable Pulmonary vessels: Normal Costophrenic angles: Clear LUNGS: Lung volumes are diminished. Accentuation of interstitium may partially be due to diminished l dipak volumes. Superimposed interstitial opacities due to infiltrate cannot be excluded. Pneumothorax: None Osseous abnormalities: None IMPRESSION: 1. Interval removal of nasogastric tube. 2. Diminished lung volumes. Accentuation of the interstitium may in part be due to atelectasis. Super imposed infiltrate cannot be excluded..
--- NOTE | 2020-03-26 08:07 | PRG ---
DATE OF SERVICE: 03/26/2020 SUBJECTIVE: Mr. Puga remains mechanically ventilated. OBJECTIVE: VITAL SIGNS: Heart rate is 85, blood pressure 100/67, respiratory rate is 30. LUNGS: Clear. HEART: Regular rhythm. ABDOMEN: Soft. LABORATORY DATA: White count 16.3, hemoglobin 10.1, platelets 124. Sodium 141, potassium 3.7, chloride 104, bicarb 22, BUN 57, creatinine 2.0, magnesium is 1, phosphorus is less than 1, bilirubin is 3.1, AST is greater than 3500, ALT 1681. IMPRESSION: 1. Respiratory failure associated with severe metabolic acidosis and gastrointestinal blood loss. 2. Metabolic acidosis, improved. 3. Acute alcoholic hepatitis with elevated liver enzymes and bilirubin, combined with probably shock liver. 4. Hypomagnesemia, hypophosphatemia, and hypokalemia, all secondary to chronic alcohol use with very poor nutritional intake. These will be replaced. 5. Acute on chronic kidney disease. 6. Extremely heavy alcohol use and extremely heavy tobacco use. 7. He has an elevated troponin, but it is extremely unlikely any of this illness was related to a coronary event. 8. We will continue with supportive care. Not currently weanable. Critical care time 30 min. Job ID: [id number] MTDD
--- NOTE | 2020-03-26 09:35 | PRG ---
DATE OF SERVICE: 03/26/2020 SUBJECTIVE: Mr. Puga remains sedated and intubated, mechanically ventilated. There has been no report of further melena. No hematemesis. His hemoglobin has been stable since initial transfusion of presentation, currently at 10.1. He had mild fever overnight to 99.9. He has a lot of electrolyte abnormalities this morning, which were being replaced. OBJECTIVE: VITAL SIGNS: Temperature 99.7, pulse 87, blood pressure 104/64, and oxygen saturation 100% on ventilator. GENERAL: Sedated and intubated. HEART: Regular rate and rhythm. LUNGS: Clear to auscultation bilaterally. ABDOMEN: Mild distention. Bowel sounds are hypoactive, but present. Nontender to palpation. EXTREMITIES: No peripheral edema. LABORATORY STUDIES: WBC down to 16.2, hemoglobin essentially stable at 10.1, and platelets 124. INR 1.7. Sodium 141, potassium 2.7, BUN 57, creatinine down to 2.02, calcium 7.7, phosphorus less than 1, magnesium 1.0, total bilirubin 3.1, direct bilirubin 2.0, alkaline phosphatase 84, AST still greater than 3500, ALT 1681, and albumin 3.6. Vitamin B12 greater than 2000. Folate 17.4. 25-hydroxy vitamin D is low at 9.0. Initial blood cultures showing no growth today. IMAGING STUDIES: Chest x-ray shows diminished lung volumes, atelectasis, superimposed infiltrate cannot be excluded. No evidence of pneumothorax. ASSESSMENT AND PLAN: 1. Acute upper gastrointestinal bleeding, presenting with severe hemorrhagic shock, now resolved. 2. Acute blood loss anemia, good response to initial massive transfusion protocol, stable hemoglobin since then, currently at 10.1. There has been no further evidence of bleeding. 3. Severe erosive esophagitis, with visible vessel. This was demonstrated on esophagogastroduodenoscopy on 03/24/2020. There was no evidence of varices. Continue with the Protonix infusion for now. Please do not place any new nasogastric or orogastric tube. Once the patient is awake off the ventilator, could start him on a clear liquid diet. 4. Shock liver. He had some degree of AST and ALT elevation on presentation consistent with alcoholic liver disease, but now more significant transaminase elevation in the context of presentation with hemorrhagic shock. This represents shock liver. We will expect to start to see improvement within the next few days, but complete resolution to baseline could be expected to take weeks. 5. Alcohol abuse. 6. Likely alcoholic cirrhosis. Note, the patient does have thrombocytopenia and some degree of coagulopathy on admission. There was no evidence of esophageal varices. The patient is going to need to quit drinking alcohol completely going forward. 7. Alcohol withdrawal. The patient is still requiring IV sedation management per Primary Service. Job ID: [id number]
--- NOTE | 2020-03-26 09:36 | PDOC.HOSPP ---
- Subjective Encounter Date: 03/26/20 Encounter Time: 12:30 Subjective: Patient remains intubate and sedated, no longer requiring levophed. - Objective Vital Signs & Weight: Vital Signs (12 hours) Temp Pulse Resp BP Pulse Ox 03/26/20 08:00 100 03/26/20 07:12 85 100/67 03/26/20 06:00 30 H 03/26/20 04:00 99.7 F H 30 H 03/26/20 02:00 30 H 03/26/20 01:54 77 03/26/20 00:00 99.7 F H 30 H 03/25/20 22:38 82 03/25/20 22:00 30 H Weight Weight 198 lb 3.129 oz Most Recent Monitor Data Heart Rate from ECG 87 NIBP 104/64 NIBP BP-Mean 77 Respiration from ECG 30 SpO2 100 I&O: 03/25/20 03/26/20 03/27/20 06:59 06:59 06:59 Intake Total 2094.1 3455 Output Total 1242 1525 75 Balance 852.1 1930 -75 Result Diagrams: 03/26/20 03:10 03/26/20 03:10 Hospitalist ROS - Review of Systems ROS unobtainable: due to endotracheal tube - Medication Medications: Active Medications Generic Name Dose Route Start Last Admin Trade Name Kortney PRN Reason Stop Dose Admin Folic Acid 1 mg 03/25/20 09:00 03/25/20 10:32 Folic Acid 1 Mg Tab PO 1 mg DAILY PATRICK Administration Pantoprazole Sodium 80 mg/ 100 mls @ 10 mls/hr 03/24/20 12:00 03/25/20 20:05 Sodium Chloride IVPB 100 mls INF PATRICK Administration Fentanyl Citrate 2,000 mcg/ 100 mls @ 0 mls/hr 03/24/20 12:30 03/25/20 23:34 Sodium Chloride IV 04/23/20 12:30 100 mls INF PATRICK Administration Protocol Per Protocol Multivitamins 10 ml/ Folic 1,011.2 mls @ 50 mls/hr 03/24/20 16:00 03/25/20 16:44 Acid 1 mg/ Thiamine HCl 100 mg IV 03/27/20 12:14 1,011.2 mls / Dextrose/Sodium Chloride 1600 PATRICK Administration Norepinephrine Bitartrate 8 mg 250 mls @ 0 mls/hr 03/24/20 18:15 03/25/20 22:05 / Dextrose/Water IVPB 250 mls INF PRN Administration TO MAINTAIN MAP > 65 Protocol As Directed Lactated Ringer's 1,000 mls @ 125 mls/hr 03/25/20 14:45 03/26/20 05:50 Lactated Ringer's IV 1,000 mls .Q8H PATRICK Administration Potassium Phosphate 30 mmol/ 510 mls @ 83.3 mls/hr 03/26/20 06:30 03/26/20 07:30 Sodium Chloride IVPB 03/26/20 12:38 510 mls NOW PATRICK Administration Lorazepam 2 mg 03/24/20 16:15 03/26/20 07:30 Lorazepam 2 Mg/Ml Vial SLOW IVP 04/23/20 16:15 2 mg Q1H PRN Administration Breakthrough agitation Morphine Sulfate 2 mg 03/24/20 16:15 03/26/20 02:30 Morphine 2 Mg/Ml Vial SLOW IVP 04/23/20 16:15 2 mg Q1H PRN Administration Breakthrough Pain/Agitation Propofol 1,000 mg 03/24/20 16:15 03/26/20 05:51 Propofol 1,000 Mg/100 Ml Vial IV 04/23/20 16:15 1,000 mg INF PRN Administration TO ACHIEVE GOAL RASS Protocol Thiamine HCl 100 mg 03/24/20 16:00 03/25/20 15:34 Thiamine Hcl 200 Mg/2 Ml Vial SLOW IVP 100 mg 1600 PATRICK Administration - Exam General - other findings: sedated on vent ENT: moist mucosa Heart: RRR, no murmur, no gallops, no rubs Respiratory: CTAB, no wheezes, no rales, no ronchi Gastrointestinal: soft, non-tender, non-distended, normal bowel sounds Neurological - other findings: moving all extremities Psychiatric - other findings: sedated on the vent Hosp A/P - Plan Hemorrhagic shock secondary to GI bleed and hypotension Acute blood loss anemia -Massive transfusion protocol and he got 4 units of transfusion. H/H now stable. -And FFP -Status post EGD showing severe erosive esophagitis with visible vessels; no varices Hypoxic respiratory failure acute and requiring intubation --Appreciate the help from critical care management. Shock liver secondary to hypoperfusion as well as underlying history of alcoholic cirrhosis Pancreatitis with a high lipase level and CT showing normal pancreas. Alcohol abuse Alcoholic cirrhosis --Trending LFT as well as lipase -Strict abstinence of alcohol - counseling when able -Banana bag x 3 d Hypocalcemia -corrected calcium 7.9 Hypokalemia, Hypophosphatemia, and Hypomagnesemia -replacing Acute kidney injury due to hemorrhagic shock --Creatinine is improving Hematuria -mild, likely due to liver disease with coagulopathy, follow Elevated troponin secondary to type II demand ischemia Echo showed EF of 55% mildly enlarged right ventricular cavity. Covid negative Full code
[2020-03-26] MEDS: Folic Acid 1 MG TAB PO SCH (11:18)
--- NOTE | 2020-03-26 13:02 | PRG ---
DATE OF SERVICE: 03/26/2020 SUBJECTIVE: Mr. Puga is a 44-year-old white male who was initially admitted for a presumed upper GI bleed. He also has underlying alcoholic cirrhosis. Upper GI endoscopy was done, which showed no active bleeding per se. I spoke with the and the tells me that this patient takes on a regular basis NSAIDs, which include Motrin and derivatives of the NSAID. He was said to be taking also BC Powder. Exact etiology of his upper GI bleed remains unclear since the upper GI endoscopy did not show any active bleeding per se. We are following this patient for his acute kidney injury, that was hemodynamically-mediated renal dysfunction. Renal function is slowly improving. He is currently on IV fluid. No acute events noted last night. OBJECTIVE: VITAL SIGNS: Blood pressure 101/69, heart rate 89, and O2 saturation is actually 100%. GENERAL: The patient is sedated, intubated on ventilator support. SKIN: Adequate turgor. HEENT: He has pinkish conjunctivae. Anicteric sclerae. NECK: No neck mass. No carotid bruits. No JVD. CHEST: No deformities. LUNGS: Clear breath sounds. HEART: Normal sinus rhythm. No murmur. No gallops. No rubs. ABDOMEN: Globular, soft, and nontender. No masses. EXTREMITIES: No edema. No deformities. MEDICATIONS: Medications of 03/26/2020 were reviewed. LABORATORY DATA: On 03/26/2020: White count 16.2 and hemoglobin 10.1. Sodium 141, potassium 2.7, chloride 104, carbon dioxide 22, BUN 57, and creatinine 2.2. ASSESSMENT AND PLAN: 1. Acute kidney injury, consider hemodynamically-mediated renal dysfunction. Continue IV hydration and try to optimize hemodynamics. He has received several units of packed red blood cells. We will continue current lactated Ringer's solution. 2. Hypokalemia. P.r.n. potassium replacement. 3. Status post gastrointestinal bleed, continue supportive care. Currently on Protonix. Continue p.r.n. blood transfusion. GI following. Job ID: [id number]
[2020-03-26] MEDS: fentaNYL Citrate/PF 2,000 MCG in Sodium Chloride 0.9% 60 ML IV SCH (13:07)
[2020-03-26] MEDS ORDERED: Norepinephrine 8 MG/0.9% NS 250 ML IVPB SCH (14:45)
[2020-03-26] MEDS: Multivitamins, Adult 10 ML, Folic Acid 1 MG, Thiamine HCl 100 MG in Dextrose 5 %-0.45 %... IV SCH (15:06)
[2020-03-26] MEDS: Thiamine HCl 200 MG/2 ML VIAL SLOW IVP SCH (15:14)
[2020-03-26] MEDS: Pantoprazole 80 MG in Sodium Chloride 0.9% 100 ML IVPB SCH (17:29)
[2020-03-27] MEDS: Pantoprazole 80 MG in Sodium Chloride 0.9% 100 ML IVPB SCH ×2 (02:59→14:08)
[2020-03-27] MEDS ORDERED: Fentanyl CADD 100 ML ONE ×2 (03:01→21:07)
[2020-03-27 04:39] LABS: Band 22 % (5-11); Hemoglobin 10.1 g/dL (14.0-18.0); Hypochromia SLIGHT = 6-15 cells (100X) (0-5/hpf); Lymphocytes 12 % (21-51); MDiff Complete? YES; Mean Corpuscular HGB CONC 34.4 g/dL (32.0-36.0); Mean Corpuscular Hemoglobin 32.2 pg (27.0-31.0); Mean Corpuscular Volume 93.6 fL (78.0-98.0); Mean Platelet Volume 9.6 fL (7.4-10.4); Metamyelocyte 1 % (0-0); Monocytes 4 % (0-10); Neutrophil 58 % (42-75); Nucleated RBC 1 % (0); Platelet Count 132 thou/uL (130-400); Platelet Morphology Comment Appears Adequate; RBC Distribution Width 16.8 % (11.5-14.5); Reactive Lymphocytes 3 % (0-10); Red Blood Cell (RBC) Count 3.14 mill/uL (4.70-6.10); White Blood Cell (WBC) Count 13.9 thou/uL (4.8-10.8)
[2020-03-27] MEDS: Propofol 1,000 MG/100 ML VIAL IV PRN ×3 (04:41→18:05)
[2020-03-27 04:45] LABS: Anion Gap 16 mmol/L (10-20); BUN (Urea Nitrogen) 34 mg/dL (8.9-20.6); Calc. Creatinine Clearance 74 mL/min (70-130); Calcium 7.5 mg/dL (7.8-10.44); Carbon Dioxide 22 mmol/L (22-29); Chloride 107 mmol/L (98-107); Glucose 85 mg/dL (70-105); Sodium 142 mmol/L (136-145)
[2020-03-27 04:46] LABS: ALT (SGPT) 1284 U/L (8-55); AST (SGOT) 2296 U/L (5-34); Alkaline Phosphatase 104 U/L (40-110); Bilirubin, Direct 3.2 mg/dL (0.1-0.3); Bilirubin, Total 4.4 mg/dL (0.2-1.2); Protein, Total 5.3 g/dL (6.0-8.3)
[2020-03-27 04:50] LABS: Potassium 2.8 mmol/L (3.5-5.1)
[2020-03-27] MEDS: Lactated Ringer's 1,000 ML IV SCH ×2 (05:51→18:00)
[2020-03-27] MEDS: Lorazepam 2 MG/ML VIAL SLOW IVP PRN (06:09)
[2020-03-27] MEDS: Folic Acid 1 MG TAB PO SCH (07:33)
[2020-03-27 07:41] LABS: Actual Bicarbonate (HCO3a) 20.2 mEq/L (22-28); Calcium, Ionized (arterial) 1.03 mmol/L (1.12-1.30); Carboxyhemoglobin (COHb) 0.3 gm% (0.0-3.0); Hemoglobin (Hb) 10.8 g/dL (14.0-18.0); O2 Tension (PaO2), arterial 122.5 mmHg (80.0-100.0); Potassium - ABG Lab 2.76 mmol/L (3.70-5.30)
[2020-03-27 07:45] LABS: CO2 Tension 20.9 mmHg (35.0-45.0)
[2020-03-27 07:46] LABS: ALV-art Gradient 136.575 mmHg (0-20); Puncture Site RRA
--- NOTE | 2020-03-27 08:02 | RAD ---
EXAM: Single view of the chest HISTORY: Ventilated patient with respiratory failure COMPARISON: 03/26/[address] 03/24/2020 FINDINGS: Single view of the chest shows a mildly enlarged cardiomediastinal silhouette. The endotra cheal tube is unchanged in position. Increased interstitial markings are present. There is no evidence of consolidation, mass, or pleural effusion. No acute osseous abnormality. IMPRESSION: Stable exam
--- NOTE | 2020-03-27 08:13 | PDOC.HOSPP ---
- Subjective Encounter Date: 03/27/20 Encounter Time: 11:45 non-verbal Subjective: No events overnight. Patient remains sedated on the vent. - Objective Vital Signs & Weight: Vital Signs (12 hours) Temp Pulse Resp BP 03/27/20 07:18 80 102/71 03/27/20 07:00 99.7 F H 03/27/20 06:00 30 H 03/27/20 04:00 99.8 F H 30 H 03/27/20 02:05 83 03/27/20 02:00 30 H 03/27/20 00:00 99.7 F H 30 H 03/26/20 22:16 80 03/26/20 22:00 30 H Weight Admit Weight 198 lb Weight 198 lb 3.129 oz Most Recent Monitor Data Heart Rate from ECG 78 NIBP 102/71 NIBP BP-Mean 81 Respiration from ECG 30 SpO2 100 I&O: 03/26/20 03/27/20 03/28/20 06:59 06:59 06:59 Intake Total 3455 4278 Output Total 1525 1865 100 Balance 1930 2413 -100 Result Diagrams: 03/27/20 03:40 03/27/20 03:40 Hospitalist ROS - Review of Systems ROS unobtainable: due to endotracheal tube - Medication Medications: Active Medications Generic Name Dose Route Start Last Admin Trade Name Kortney PRN Reason Stop Dose Admin Folic Acid 1 mg 03/25/20 09:00 03/27/20 07:33 Folic Acid 1 Mg Tab PO Not Given DAILY PATRICK Pantoprazole Sodium 80 mg/ 100 mls @ 10 mls/hr 03/24/20 12:00 03/27/20 02:59 Sodium Chloride IVPB 100 mls INF PATRICK Administration Fentanyl Citrate 2,000 mcg/ 100 mls @ 0 mls/hr 03/24/20 12:30 03/26/20 13:07 Sodium Chloride IV 04/23/20 12:30 100 mls INF PATRICK Administration Protocol Per Protocol Multivitamins 10 ml/ Folic 1,011.2 mls @ 50 mls/hr 03/24/20 16:00 03/26/20 15:06 Acid 1 mg/ Thiamine HCl 100 mg IV 03/27/20 12:14 1,011.2 mls / Dextrose/Sodium Chloride 1600 PATRICK Administration Levofloxacin 750 mg/ Device 150 mls @ 100 mls/hr 03/26/20 12:00 03/26/20 11:16 IVPB 150 mls Q2D PATRICK Administration Lactated Ringer's 1,000 mls @ 125 mls/hr 03/25/20 14:45 03/27/20 05:51 Lactated Ringer's IV 1,000 mls .Q8H PATRICK Administration Lorazepam 2 mg 03/24/20 16:15 03/27/20 06:09 Lorazepam 2 Mg/Ml Vial SLOW IVP 04/23/20 16:15 2 mg Q1H PRN Administration Breakthrough agitation Morphine Sulfate 2 mg 03/24/20 16:15 03/26/20 02:30 Morphine 2 Mg/Ml Vial SLOW IVP 04/23/20 16:15 2 mg Q1H PRN Administration Breakthrough Pain/Agitation Propofol 1,000 mg 03/24/20 16:15 03/27/20 04:41 Propofol 1,000 Mg/100 Ml Vial IV 04/23/20 16:15 1,000 mg INF PRN Administration TO ACHIEVE GOAL RASS Protocol Thiamine HCl 100 mg 03/24/20 16:00 03/26/20 15:14 Thiamine Hcl 200 Mg/2 Ml Vial SLOW IVP 100 mg 1600 PATRICK Administration - Exam General Appearance: NAD Eye: scleral icterus ENT: moist mucosa Heart: RRR, no murmur, no gallops, no rubs Respiratory: CTAB, no wheezes, no rales, no ronchi Gastrointestinal: soft, non-tender, non-distended, normal bowel sounds Extremities: no edema Psychiatric - other findings: sedated on the vent Hosp A/P - Plan Hemorrhagic shock secondary to GI bleed and hypotension Acute blood loss anemia -Massive transfusion protocol and he got 4 units of transfusion. H/H now stable. -And FFP -Status post EGD showing severe erosive esophagitis with visible vessels; no varices Hypoxic respiratory failure acute and requiring intubation --Appreciate the help from critical care management. --Not yet weanable per Dr. Germain's note Shock liver secondary to hypoperfusion as well as underlying history of alcoholic cirrhosis Pancreatitis with a high lipase level and CT showing normal pancreas. Alcohol abuse Alcoholic cirrhosis --Trending LFT as well as lipase -Strict abstinence of alcohol - counseling when able -Banana bag x 3 d Hypocalcemia -corrected calcium 7.9 Hypokalemia, Hypophosphatemia, and Hypomagnesemia -replacing Acute kidney injury due to hemorrhagic shock --Creatinine is improving Hematuria -mild, likely due to liver disease with coagulopathy, follow Elevated troponin secondary to type II demand ischemia Echo showed EF of 55% mildly enlarged right ventricular cavity. Covid negative Full code
[2020-03-27] MEDS ORDERED: Potassium Chloride 40 MEQ in Premix Bag 1 BAG IVPB SCH (08:15)
[2020-03-27] MEDS: Thiamine HCl 200 MG/2 ML VIAL SLOW IVP SCH (16:02)
--- NOTE | 2020-03-27 16:19 | PRG ---
DATE OF SERVICE: 03/27/2020 SUBJECTIVE: Mr. Puga remains sedated for mechanical ventilation complicating factor that appears several days back when he started alcohol withdrawal, so we keep him deeply sedated. OBJECTIVE: VITAL SIGNS: Heart rate is 84, blood pressure 97/68. FiO2 is at 40%. Respiratory rates been turned way down given that he has developed metabolic acidosis. LUNGS: Clear. HEART: Regular rhythm. ABDOMEN: Soft. LABORATORY DATA: White count 13.9, hemoglobin 10.1, platelets 132,000. Sodium 142, potassium 2.8, chloride 107, bicarb 22, BUN 34, creatinine 1.58. PH was 7.6, CO2 of 20, PO2 of 122. IMPRESSION: Respiratory failure associated with severe anemia and metabolic acidosis. Hopefully within 24 to 48 hours, we can start waking him up and try to wean him with spontaneous breathing trial. His chest x-ray shows no new alveolar infiltrates today. Critical care time 30 min. Job ID: [id number] MTDD
--- NOTE | 2020-03-27 16:51 | PRG ---
DATE OF SERVICE: SUBJECTIVE: Mr. Puga is sedated on the vent. He has had no further overt GI bleeding. OBJECTIVE: VITAL SIGNS: Temperature is 98.6, pulse 84, blood pressure 99/64. GENERAL: He is in no acute distress. Sedated on the vent. Endotracheal tubes in place. LUNGS: Clear to auscultation bilaterally. HEART: Regular rate and rhythm without murmur. ABDOMEN: Soft, mildly distended. No obvious tenderness. Bowel sounds are present. EXTREMITIES: Trace lower extremity edema. LABORATORY DATA: Hemoglobin is 10.1, white blood cell count 13.9, platelets 132. Creatinine 1.57. Bilirubin 4.4, AST 2296, ALT 1284, albumin 3.0. IMPRESSION: 1. Acute GI bleed, resolved. He had esophageal ulcerations with visible vessels which were cauterized. 2. Anemia of acute blood loss and hemorrhagic shock, improved. 3. Ischemic hepatopathy. 4. Likely underlying cirrhosis and alcohol abuse. 5. Alcohol withdrawal. 6. Respiratory failure. RECOMMENDATIONS: 1. He can transition from pantoprazole drip to twice daily dosing tomorrow. 2. Mild abdominal distention which largely a subcutaneous fat. However, if this becomes increasingly tired or worsens, then consider repeat ultrasound, reassess for significant ascites. 3. Recheck hemoglobin in the morning. 4. Recheck liver tests and PT/INR in the morning. I expect given the degree of his ischemic hepatopathy that his bilirubin will likely continue to rise. Job ID: [id number]
[2020-03-28] MEDS: Lactated Ringer's 1,000 ML IV SCH ×3 (00:10→20:19)
[2020-03-28 05:43] LABS: Magnesium 1.5 mg/dL (1.6-2.6); Phosphorus 2.5 mg/dL (2.3-4.7)
[2020-03-28 05:57] LABS: INR-International Normal Ratio 1.3
[2020-03-28 06:02] LABS: Band 12 % (5-11); Eosinophils 2 % (0-10); Hypochromia SLIGHT = 6-15 cells (100X) (0-5/hpf); Lymphocytes 12 % (21-51); MDiff Complete? YES; Mean Corpuscular HGB CONC 33.1 g/dL (32.0-36.0); Mean Corpuscular Volume 96.8 fL (78.0-98.0); Mean Platelet Volume 9.3 fL (7.4-10.4); Monocytes 11 % (0-10); Neutrophil 63 % (42-75); Platelet Count 160 thou/uL (130-400); Platelet Morphology Comment Appears Adequate; RBC Distribution Width 16.6 % (11.5-14.5); Red Blood Cell (RBC) Count 3.45 mill/uL (4.70-6.10); White Blood Cell (WBC) Count 18.4 thou/uL (4.8-10.8)
[2020-03-28] MEDS: Propofol 1,000 MG/100 ML VIAL IV PRN (06:42)
--- NOTE | 2020-03-28 07:33 | RAD ---
XR Chest 1 View Portable History: Ventilated patient Comparison: Radiograph prior day Findings: New right middle and right lower lobe airspace opacity. Remainder the lungs are clear. No p neumothorax. Endotracheal tube tip is above the clavicular level. Impression: New airspace opacities within the right middle and lower lobes could be on the basis of a telectasis. Continued follow-up recommended.
[2020-03-28] MEDS ORDERED: Magnesium Sulfate 3 GM in Sodium Chloride 0.9% 100 ML IVPB SCH (07:45)
[2020-03-28] MEDS: Folic Acid 1 MG TAB PO SCH (07:47)
[2020-03-28 08:00] LABS: Albumin 2.9 g/dL (3.5-5.0)
[2020-03-28 08:01] LABS: Chloride 109 mmol/L (98-107)
[2020-03-28 08:02] LABS: Calcium 7.7 mg/dL (7.8-10.44); Sodium 141 mmol/L (136-145)
[2020-03-28 08:03] LABS: Glucose 86 mg/dL (70-105); Protein, Total 5.4 g/dL (6.0-8.3)
[2020-03-28 08:04] LABS: Anion Gap 15 mmol/L (10-20); Carbon Dioxide 21 mmol/L (22-29)
[2020-03-28 08:05] LABS: Alkaline Phosphatase 122 U/L (40-110); Bilirubin, Total 4.8 mg/dL (0.2-1.2)
[2020-03-28 08:06] LABS: Calc. Creatinine Clearance 101 mL/min (70-130)
[2020-03-28 08:07] LABS: BUN (Urea Nitrogen) 22 mg/dL (8.9-20.6)
[2020-03-28 08:08] LABS: AST (SGOT) 1241 U/L (5-34); Bilirubin, Direct 3.7 mg/dL (0.1-0.3)
[2020-03-28 08:09] LABS: ALT (SGPT) 958 U/L (8-55)
[2020-03-28] MEDS: Pantoprazole 80 MG in Sodium Chloride 0.9% 100 ML IVPB SCH (11:58)
--- NOTE | 2020-03-28 13:07 | PDOC.HOSPP ---
- Subjective Encounter Date: 03/28/20 Encounter Time: 10:15 Subjective: Patient is intubated and sedated, patient's is present bedside, - Objective Vital Signs & Weight: Vital Signs (12 hours) Temp Pulse Resp Pulse Ox 03/28/20 12:54 103 H 28 H 92 L 03/28/20 12:00 97.1 F L 19 03/28/20 10:30 81 03/28/20 09:56 17 03/28/20 08:00 15 03/28/20 07:27 78 03/28/20 07:00 99.3 F 03/28/20 05:55 15 03/28/20 05:07 77 03/28/20 04:00 15 03/28/20 02:00 15 Weight Admit Weight 198 lb Weight 198 lb 3.129 oz Most Recent Monitor Data Heart Rate from ECG 91 NIBP 116/72 NIBP BP-Mean 86 Respiration from ECG 23 SpO2 97 I&O: 03/27/20 03/28/20 03/29/20 06:59 06:59 06:59 Intake Total 4278 3535 Output Total 1865 1525 510 Balance 2413 2009 -510 Result Diagrams: 03/28/20 04:00 03/28/20 03:30 EKG Reviewed by me: Yes Hospitalist ROS - Review of Systems ROS unobtainable: due to endotracheal tube - Medication Medications: Active Medications Generic Name Dose Route Start Last Admin Trade Name Freq PRN Reason Stop Dose Admin Folic Acid 1 mg 03/25/20 09:00 03/28/20 07:47 Folic Acid 1 Mg Tab PO Not Given DAILY PATRICK Pantoprazole Sodium 80 mg/ 100 mls @ 10 mls/hr 03/24/20 12:00 03/28/20 11:58 Sodium Chloride IVPB 100 mls INF PATRICK Administration Fentanyl Citrate 2,000 mcg/ 100 mls @ 0 mls/hr 03/24/20 12:30 03/26/20 13:07 Sodium Chloride IV 04/23/20 12:30 100 mls INF PATRICK Administration Protocol Per Protocol Levofloxacin 750 mg/ Device 150 mls @ 100 mls/hr 03/26/20 12:00 03/28/20 11:45 IVPB 150 mls Q2D PATRICK Administration Lactated Ringer's 1,000 mls @ 125 mls/hr 03/25/20 14:45 03/28/20 11:47 Lactated Ringer's IV 1,000 mls .Q8H PATRICK Administration Lorazepam 2 mg 03/24/20 16:15 03/27/20 06:09 Lorazepam 2 Mg/Ml Vial SLOW IVP 04/23/20 16:15 2 mg Q1H PRN Administration Breakthrough agitation Morphine Sulfate 2 mg 03/24/20 16:15 03/26/20 02:30 Morphine 2 Mg/Ml Vial SLOW IVP 04/23/20 16:15 2 mg Q1H PRN Administration Breakthrough Pain/Agitation Propofol 1,000 mg 03/24/20 16:15 03/28/20 06:42 Propofol 1,000 Mg/100 Ml Vial IV 04/23/20 16:15 1,000 mg INF PRN Administration TO ACHIEVE GOAL RASS Protocol Thiamine HCl 100 mg 03/24/20 16:00 03/27/20 16:02 Thiamine Hcl 200 Mg/2 Ml Vial SLOW IVP 100 mg 1600 PATRICK Administration - Exam General Appearance: NAD General - other findings: On ventilator Eye: anicteric sclera ENT: normocephalic atraumatic, no oropharyngeal lesions Neck: supple, symmetric, no JVD Heart: RRR, no murmur, no gallops Respiratory: no wheezes, no rales, no ronchi Gastrointestinal: soft, non-distended, normal bowel sounds Extremities: no edema Hosp A/P (1) Hemorrhagic shock Code(s): R57.8 - OTHER SHOCK Status: Acute (2) Respiratory failure requiring intubation Code(s): J96.90 - RESPIRATORY FAILURE, UNSP, UNSP W HYPOXIA OR HYPERCAPNIA Status: Acute (3) Shock liver Code(s): K72.00 - ACUTE AND SUBACUTE HEPATIC FAILURE WITHOUT COMA Status: Acute (4) Alcoholic cirrhosis of liver Code(s): K70.30 - ALCOHOLIC CIRRHOSIS OF LIVER WITHOUT ASCITES Status: Chronic Qualifiers: Ascites presence: unspecified Qualified Code(s): K70.30 - Alcoholic cirrhosis of liver without ascites (5) Obesity (BMI 30.0-34.9) Code(s): E66.9 - OBESITY, UNSPECIFIED Status: Chronic (6) Hypokalemia Code(s): E87.6 - HYPOKALEMIA Status: Resolved (7) Hypomagnesemia Code(s): E83.42 - HYPOMAGNESEMIA Status: Acute (8) Acute kidney failure Status: Acute - Plan old records reviewed/req, plan discussed w/ family, morgan catheter Continue Protonix Liver function slowly improving Ventilator will defer to pulmonology Updated plan of care and test results to patient's bedside Replace magnesium sulfate 3 g Nephrology and gastroenterology and pulmonology following
--- NOTE | 2020-03-28 15:19 | PDOC.PALPN ---
Palliative Progress Note - Subjective Successfully extubated, remains lethargic and unable to participate in exam. Flat affect, appears confused. - Objective Vital Signs: Vital Signs - Most Recent Temp Pulse Resp BP Pulse Ox 97.1 F L 103 H 28 H 97/68 92 L 03/28/20 12:00 03/28/20 12:54 03/28/20 12:54 03/27/20 15:07 03/28/20 12:54 - Physical Exam Constitutional: encephalitic, ill appearing HEENT: EOMI, PERRLA, sclera anicteric Respiratory: no wheezing Deviation from normal: Shallow, appear clear Cardiovascular: RRR Gastrointestinal: soft, non-tender Deviation from normal: distended Genitourinary: morgan catheter Musculoskeletal: no cyanosis, no clubbing, edema present Neurology: no focal deficits Skin: cap refill <2 seconds, no lesions Deviation from normal: remains confused - Assessment (1) Hemorrhagic shock Code(s): R57.8 - OTHER SHOCK Current Visit: Yes Status: Acute (2) Respiratory failure requiring intubation Code(s): J96.90 - RESPIRATORY FAILURE, UNSP, UNSP W HYPOXIA OR HYPERCAPNIA Current Visit: Yes Status: Acute (3) Alcoholic cirrhosis of liver Code(s): K70.30 - ALCOHOLIC CIRRHOSIS OF LIVER WITHOUT ASCITES Current Visit: Yes Status: Chronic Qualifiers: Ascites presence: unspecified Qualified Code(s): K70.30 - Alcoholic cirrhosis of liver without ascites (4) Palliative care encounter Code(s): Z51.5 - ENCOUNTER FOR PALLIATIVE CARE Current Visit: Yes Status: Acute - Plan Plan: Palliative care has met with patient and provided support and information in relation to [facility] Palliative care will follow up 03/29 to revisit goal of care and address directive to physician. [20] minutes spent on this encounter with >50% of the time in counseling and coordination of care. - ROS Non Response: due to mental status
--- NOTE | 2020-03-28 16:06 | PRG ---
DATE OF SERVICE: 03/28/2020 REASON FOR CONSULTATION: Hemorrhagic shock from GI bleed, erosive esophagitis, ischemic hepatopathy with elevated LFTs. SUBJECTIVE: Earlier today, the patient was extubated successfully with no problems with extubation thus far. Per nursing staff, he has not had any further episodes of melena nor has he had any hematemesis or hematochezia. He has had good urine output over the last 12 to 24 hours and has been able to respond to simple commands with no evidence of encephalopathy as well. OBJECTIVE: VITAL SIGNS: Temperature 97.1, pulse 98, blood pressure 144/89, respiratory rate 27, saturating 98% on 4 L nasal cannula. GENERAL: The patient was lying in bed, in no acute distress. Alert and oriented x3. CARDIOVASCULAR: Tachycardic rate, but regular rhythm. RESPIRATORY: Clear to auscultation with inspiration but with mild end-expiratory wheezing. ABDOMEN: Normoactive bowel sounds. Soft. Moderate abdominal distention that was semitense to palpation, but with no pain elicited with palpation. EXTREMITIES: No edema noted in the lower extremities, but nonpitting edema was seen in the bilateral upper extremities. LABORATORY DATA: CBC with a white blood cell count of 18.4, hemoglobin 18, hematocrit 33.4, and platelets 160. INR 1.3. Chemistry with a sodium of 141, potassium 4, chloride 109, CO2 of 21, BUN 22, creatinine 1.16, glucose 86, AST 1241, ALT 958, alkaline phosphatase 122, total bilirubin 4.8. IMAGING DATA: Chest x-ray was obtained on March 28, 2020, which showed new airspace opacities within the right middle and lower lobes, which could be indicative of atelectasis. ASSESSMENT AND PLAN: The patient is a 44-year-old male with past medical history of alcohol abuse and arthritis, who initially presented with hemorrhagic shock secondary to upper gastrointestinal bleeding from erosive esophagitis and respiratory distress, now status post extubation. Hemorrhagic shock. The patient initially presented to the hospital with altered mental status, hypotension, and tachycardia with evidence of acute renal failure on labs in addition to a pH of 6.77. He was subsequently sedated and intubated with an OG tube placed. They got 800 mL of dark maroon gastric contents. He subsequently underwent urgent upper endoscopy with findings of severe erosive esophagitis with visible vessels that were not intervened upon due to lack of evidence of active bleeding. In the postoperative period, the patient has done well, both responding to massive blood infusion protocol and has had no further episodes of melena consistent with gastrointestinal bleeding. His H and H are also stabilized again lending more credence towards lack of evidence of gastrointestinal bleeding, and his renal function has returned almost to baseline. At this time, the most likely explanation for his gastrointestinal bleed would be severe erosive esophagitis secondary to either NSAID use versus chronic alcohol abuse with acid reflux or combination of the two. Recommendations: 1. We would continue to trend his H and H and transfuse as necessary to maintain an H and H of 10/03. 2. Continue to monitor clinically for signs of active GI bleeding. 3. We would continue to avoid any anticoagulation if clinically able. 4. We transfer the patient from PPI drip to 40 mg pantoprazole IV b.i.d. Elevated LFTs. The patient initially presented to the hospital with significant hypotension and tachycardia consistent with hemorrhagic shock. On initial evaluation of his LFTs, they were only slightly elevated, but within the next 24 hours, were greater than 3500, consistent with ischemic hepatopathy. Over the last 24 to 48 hours, they have been significantly downtrending with infusion of blood product and stabilization of his clinical status. At this time, the most likely explanation for his elevated LFTs would have been the hypotension associated with his hemorrhagic shock episode on admission, for which the patient is recovering now that he has been stabilized. Recommendations: 1. We would continue to trend LFTs and INR daily to further trend response to therapy and/or worsening liver failure. 2. We would attempt to avoid any potential hepatotoxins. Increased abdominal distention. The patient presented with a longstanding history of chronic alcohol abuse, and on initial evaluation of the patient's CT scan on March 24, 2020, there was heterogeneous attenuation of the liver, likely due to fatty infiltration and fatty sparing, but no mention of cirrhotic morphology. However, over the last 24 hours per nursing staff, the patient has been having increased abdominal distention and does have a moderately distended abdomen on physical examination today that is tympanic to percussion in midline, but dull on the periphery. At this time, it is concerning for the presence of ascites, which could be indicative of possible cirrhosis contributing to portal hypertension. At this time, it is unclear whether or not the patient has underlying cirrhosis or only fatty liver contributing to current problem in addition to possible ascites. Recommendations: 1. We would obtain an abdominal ultrasound for further evaluation of the patient's liver and possible ascites. 2. If ascites is present, we would consider paracentesis for further evaluation/analysis of the fluid to help in the diagnosis of possible cirrhosis. We will continue to follow. Please call with any questions. Job ID: [id number]
[2020-03-28] MEDS: Thiamine HCl 200 MG/2 ML VIAL SLOW IVP SCH (16:57)
[2020-03-28] MEDS: Pantoprazole 40 MG VIAL IVP SCH (20:19)
[2020-03-28] MEDS: Morphine 2 MG/ML VIAL SLOW IVP PRN (20:33)
--- NOTE | 2020-03-28 20:45 | PRG ---
DATE OF SERVICE: 03/28/2020 SUBJECTIVE: Mr. Puga was evaluated this morning. His sedation was held. Met criteria for spontaneous breathing trial. He passed a leak test. He subsequently was extubated. OBJECTIVE: VITAL SIGNS: Temperature 99, heart rates in the 90s, respiratory rates in the teens, oximetry is 100% on nasal cannula, blood pressure is 136/91. LUNGS: Clear. HEART: Regular rhythm. ABDOMEN: Soft. EXTREMITIES: Without asymmetry or edema. He is able to follow commands, although he is still a little bit encephalopathic. He actually tried to pull his central line out. IMAGING STUDIES: Chest x-ray showed some atelectasis at his right base. IMPRESSION: Respiratory failure associated with a gastrointestinal bleed and very severe metabolic acidosis. Amazingly, he survived. He has been observed all afternoon post extubation, clinically stable with no respiratory issues, so he will be transferred out to the telemetry unit. He will have a swallowing evaluation. Continue with Protonix until GI says that he can be switched to p.o. His sedative drugs will be withdrawn. He is not having any evidence at this point of alcohol withdrawal and he is actually almost outside the window for alcohol withdrawal. I do not see any reason to continue daily chest x-rays. Continue to have daily CBCs. Apparently, daily ammonias have been ordered, but they have never been elevated, only once has been done. Liver enzymes as expected are elevated. His hepatic his bilirubin remains elevated as expected. I am sure he has a combination of alcoholic hepatitis and shock liver. We will sign off critical care unit. Critical care time 30 min. Job ID: [id number] MTDD
[2020-03-29] MEDS: Morphine 2 MG/ML VIAL SLOW IVP PRN ×2 (01:30→04:18)
[2020-03-29] MEDS: Lactated Ringer's 1,000 ML IV SCH (04:18)
[2020-03-29 04:50] LABS: Anion Gap 13 mmol/L (10-20); BUN (Urea Nitrogen) 14 mg/dL (8.9-20.6); Calc. Creatinine Clearance 129 mL/min (70-130); Calcium 8.2 mg/dL (7.8-10.44); Carbon Dioxide 23 mmol/L (22-29); Chloride 109 mmol/L (98-107); Glucose 87 mg/dL (70-105); Magnesium 1.7 mg/dL (1.6-2.6); Sodium 141 mmol/L (136-145)
[2020-03-29 04:53] LABS: ALT (SGPT) 706 U/L (8-55); AST (SGOT) 662 U/L (5-34); Acetaminophen Less than 6.0 mcg/mL (10.0-30.0); Albumin 2.8 g/dL (3.5-5.0); Alkaline Phosphatase 123 U/L (40-110); Bilirubin, Direct 4.4 mg/dL (0.1-0.3); Bilirubin, Total 6.1 mg/dL (0.2-1.2); Iron 128 ug/dL (65-175); Iron Binding Capacity, Total 163 mcg/dL (261-462); Phosphorus 2.3 mg/dL (2.3-4.7); Protein, Total 5.3 g/dL (6.0-8.3)
[2020-03-29 04:57] LABS: Band 5 % (5-11); Eosinophils 2 % (0-10); Hemoglobin 10.6 g/dL (14.0-18.0); Hypochromia SLIGHT = 6-15 cells (100X) (0-5/hpf); Lymphocytes 11 % (21-51); MDiff Complete? YES; Mean Corpuscular HGB CONC 32.7 g/dL (32.0-36.0); Mean Corpuscular Hemoglobin 31.9 pg (27.0-31.0); Mean Corpuscular Volume 97.8 fL (78.0-98.0); Mean Platelet Volume 9.3 fL (7.4-10.4); Monocytes 18 % (0-10); Neutrophil 64 % (42-75); Platelet Count 158 thou/uL (130-400); Platelet Morphology Comment Appears Adequate; RBC Distribution Width 16.3 % (11.5-14.5); Red Blood Cell (RBC) Count 3.32 mill/uL (4.70-6.10); White Blood Cell (WBC) Count 21.7 thou/uL (4.8-10.8)
[2020-03-29 05:21] LABS: HBSAg Index 0.15 S/CO (0-0.99); Hep A IgM AB Non-Reactive (NonReactive); Hep A IgM S/CO 0.12 S/CO (0-0.79); Hep B Surf Ag Non-Reactive S/CO (NonReactive); Hep C IgG Ab Non-Reactive (NonReactive); Hep C Index 0.08 S/CO (0-0.79); Hepatitis B Core IgM Abs Non-Reactive (NonReactive)
[2020-03-29 05:53] LABS: Ferritin 1832.13 ng/mL (22-322)
[2020-03-29] MEDS ORDERED: Senokot S 8.6-50 MG TAB PO PRN (07:39)
[2020-03-29] MEDS ORDERED: hydrALAZINE 20 MG/ML VIAL SLOW IVP PRN (07:39)
[2020-03-29] MEDS ORDERED: Calcium Carbonate 500 MG ChewTAB PO PRN (07:39)
[2020-03-29] MEDS ORDERED: Cepastat Lozenges 1 LOZ PO PRN (07:39)
[2020-03-29] MEDS ORDERED: Sodium Chloride 0.65% Nasal 44 ML BOT EA NARE PRN (07:39)
[2020-03-29] MEDS ORDERED: Loperamide HCl 2 MG CAP PO PRN (07:39)
[2020-03-29] MEDS ORDERED: GUAIFENESIN SF SOLN 200 MG/10 ML UDCUP PO PRN (07:39)
[2020-03-29] MEDS ORDERED: Loratadine 10 MG TAB PO PRN (07:39)
[2020-03-29] MEDS ORDERED: Ondansetron ODT 4 MG TAB PO PRN (07:39)
[2020-03-29] MEDS: cefTRIAXone\\ROCEPHIN 1 GM in Sodium Chloride 0.9% 100 ML IVPB SCH (08:15)
[2020-03-29] MEDS: Pantoprazole 40 MG VIAL IVP SCH ×2 (08:15→21:54)
--- NOTE | 2020-03-29 10:03 | PDOC.HOSPP ---
- Subjective Encounter Date: 03/29/20 Encounter Time: 07:15 Subjective: Patient seen and examined bedside today, patient is able to use bedside commode, patient is overall weak, his abdomen is slightly distended, this morning he has melanotic stool, - Objective Vital Signs & Weight: Vital Signs (12 hours) Temp Pulse Resp BP Pulse Ox 03/29/20 07:50 98.3 F 88 17 126/68 100 03/29/20 04:00 99 F 81 22 H 111/55 L 100 03/28/20 23:55 122/65 Weight Admit Weight 198 lb Weight 198 lb 3.129 oz Most Recent Monitor Data Heart Rate from ECG 96 NIBP 127/66 NIBP BP-Mean 86 Respiration from ECG 22 SpO2 99 I&O: 03/28/20 03/29/20 03/30/20 06:59 06:59 06:59 Intake Total 3535 1636.8 1400 Output Total 7485 189 3682 Balance 2010 726.8 150 Result Diagrams: 03/29/20 04:06 03/29/20 04:06 EKG Reviewed by me: Yes (Sinus rhythm) Hospitalist ROS - Review of Systems Constitutional: reports: weakness. denies: fever, chills, sweats, malaise, other ENT: denies: ear pain, ear discharge, nose pain, nose discharge, nose congestion, mouth pain, mouth swelling, throat pain, throat swelling, other Respiratory: denies: cough, dry, shortness of breath, hemoptysis, SOB with excertion, pleuritic pain, sputum, wheezing, other Cardiovascular: denies: chest pain, palpitations, orthopnea, paroxysmal noc. dyspnea, edema, light headedness, other Gastrointestinal: reports: melena. denies: nausea, vomiting, abdominal pain, diarrhea, constipation, hematochezia, other Genitourinary: denies: dysuria, frequency, incontinence, hematuria, retention, other Musculoskeletal: denies: neck pain, shoulder pain, arm pain, back pain, hand pain, leg pain, foot pain, other - Medication Medications: Active Medications Generic Name Dose Route Start Last Admin Trade Name Freq PRN Reason Stop Dose Admin Folic Acid 1 mg 03/25/20 09:00 03/28/20 07:47 Folic Acid 1 Mg Tab PO Not Given DAILY [facility] Ceftriaxone Sodium 1 gm/ 100 mls @ 200 mls/hr 03/29/20 08:00 03/29/20 08:15 Sodium Chloride IVPB 100 mls Q24HR PATRICK Administration Pantoprazole Sodium 40 mg 03/28/20 21:00 03/29/20 08:15 Pantoprazole 40 Mg Vial IVP 40 mg BID PATRICK Administration - Exam General Appearance: NAD Eye: PERRL, anicteric sclera ENT: normocephalic atraumatic, no oropharyngeal lesions Neck: supple, symmetric, no JVD, no thyromegaly Heart: RRR, no murmur, no gallops, no rubs Respiratory: no wheezes, no rales, no ronchi Gastrointestinal: soft, non-tender, normal bowel sounds Gastrointestinal - other findings: Slightly distended Extremities: 1+ LE edema Skin: normal turgor, no lesions Neurological: no focal deficits Musculoskeletal: normal tone, normal strength Hosp A/P (1) Acute GI bleeding Code(s): K92.2 - GASTROINTESTINAL HEMORRHAGE, UNSPECIFIED Status: Acute Plan: Due to severe esophagitis and distal esophageal ulceration (2) Hemorrhagic shock Code(s): R57.8 - OTHER SHOCK Status: Resolved (3) Anemia due to acute blood loss Code(s): D62 - ACUTE POSTHEMORRHAGIC ANEMIA Status: Acute Plan: So far 6 units of blood transfusion given (4) Respiratory failure requiring intubation Code(s): J96.90 - RESPIRATORY FAILURE, UNSP, UNSP W HYPOXIA OR HYPERCAPNIA Status: Resolved Plan: Extubated and doing well (5) Shock liver Code(s): K72.00 - ACUTE AND SUBACUTE HEPATIC FAILURE WITHOUT COMA Status: Acute Plan: Slowly improving liver function test (6) Hypokalemia Code(s): E87.6 - HYPOKALEMIA Status: Resolved (7) Hypomagnesemia Code(s): E83.42 - HYPOMAGNESEMIA Status: Resolved (8) Acute kidney failure Status: Resolved (9) Metabolic acidosis Code(s): E87.2 - ACIDOSIS Status: Resolved (10) Coagulopathy Status: Acute Plan: Patient was given FFP and coagulopathy corrected (11) Alcoholic cirrhosis of liver Code(s): K70.30 - ALCOHOLIC CIRRHOSIS OF LIVER WITHOUT ASCITES Status: Chronic Qualifiers: Ascites presence: unspecified Qualified Code(s): K70.30 - Alcoholic cirrhosis of liver without ascites (12) Obesity (BMI 30.0-34.9) Code(s): E66.9 - OBESITY, UNSPECIFIED Status: Chronic - Plan old records reviewed/req, plan discussed w/ family, samm morgan dc IVF For abdominal distention I have ordered ultrasound abdomen to rule out ascites Antibiotics changed from Levaquin to Rocephin Continue IV Protonix Vitamin started on folic acid, thiamine, multivitamin p.o. Discontinue Morgan catheter Start PT OT Discussed with the patient's bedside We will repeat labs tomorrow
--- NOTE | 2020-03-29 10:39 | ULT ---
EXAM: US Abdominal CLINICAL HISTORY: Cirrhosis. COMPARISON: None. FINDINGS: Exam is limited by body habitus. Pancreas: Obscured by bowel gas IVC: Obscured by bowel gas Aorta: Obscured by bowel gas Liver:Dense echotexture of the liver with nodularity. There is heterogeneous echotexture. Findings ar e presumed to be a cirrhotic change. Limited evaluation for intrahepatic masses. Gallbladder: Distended. Gallbladder wall thickness of the upper limits of normal. Small amount of per icholecystic fluid. No sonographic evidence of cholelithiasis. Ocampo's sign:Not commented upon CBD: Not appreciated Portal vein: Difficult to assess flow Right kidney: Limited evaluation. Grossly no hydronephrosis. Right kidney measuring 13.1 x 5.2 x 5.1 cm in length. Left kidney: Limited evaluation. Grossly no hydronephrosis. Left kidney measuring 12.6 x 6.6 x 7.2 c m in length Spleen: Limited evaluation. Spleen measures 9.8 cm. Additional findings: There is evidence of ascites, predominantly perihepatic in location. IMPRESSION: 1. Limited evaluation. 2. Distended gallbladder. There is concern for cholecystitis, consider HIDA scan 3. Ascites. Note, ascites was not present on the CT performed on 03/24/2020. 4. Flow in the portal vein cannot be documented. Findings may be due to technical limitations. If the re is concern for portal vein thrombosis, additional imaging can be performed. Given the constellation of findings, consider abdomen MRI. Findings conveyed to Dr. Ruano via [facility] 03/29/2020 and 10:36 AM Code CR.
[2020-03-29] MEDS: Thiamine 100 MG TAB PO SCH (11:01)
[2020-03-29] MEDS: Cyanocobalamin (Vitamin B-12) 1,000 MCG TAB PO SCH (11:01)
[2020-03-29] MEDS: Folic Acid 1 MG TAB PO SCH (11:01)
[2020-03-29] MEDS: Multivitamin W/ Minerals 1 TAB PO SCH (11:01)
--- NOTE | 2020-03-29 16:03 | PRG ---
DATE OF SERVICE: SUBJECTIVE: Mr. Puga is resting in bed. His is at the bedside. She notes he has been having liquids, no solids any pain, melena or hematochezia. MEDICATIONS: He is on: 1. Calcium carbonate. 2. Rocephin. 3. B12. 4. Folic acid. 5. Hydralazine. 6. Theragran. 7. Lactulose. 8. Imodium. 9. Zofran. 10. Protonix IV b.i.d. 11. Thiamine. OBJECTIVE: VITAL SIGNS: Temperature is 99.4, T-max 99.9 on the 10th, pulse 98, respirations 17, O2 saturation 99% on 4 L, blood pressure 129/84. GENERAL: He has some edema. He looks a little sleepy, but he is arousable. He knows where he is. He recognizes his . ABDOMEN: Soft, slightly protuberant. There is no rebound. There is no guarding. EXTREMITIES: Trace edema. LABORATORY DATA: White count 21,000, hemoglobin 10.6, platelet count 159, 5% bands. Sodium 141, potassium 4, BUN and creatinine of 14 and 0.9. Bilirubin 6, direct is 4.4. AST 662, ALT 704. Ferritin is 1832, ammonia 55, albumin 2.8, protein 5.3, B12 normal at 2000. IgG 1028, normal. Hepatitis A, B, and C negative. COVID negative this admission. ASSESSMENT: 1. Status post gastrointestinal hemorrhage with hemorrhagic shock, likely related to ulcer at the gastroesophageal junction from severe reflux and alcohol abuse, NSAID use as well. This was controlled and his hemoglobin has been stable. 2. Hemorrhagic shock with resultant ischemic hepatopathy and acute renal failure, also requiring endoscopy for control. 3. Alcohol abuse. RECOMMENDATIONS: 1. Continue PPI. 2. Await further liver workup to make sure not missing any underlying diseases. 3. Multivitamin, thiamine, and folate. 4. Watch for alcohol withdrawal. 5. If the patient continues to have low-grade fever and leukocytosis, consider repeating chest x-ray to make sure aspiration pneumonia just come off the ventilator. We will follow from a distance. Job ID: [id number]
[2020-03-30 04:59] LABS: ALT (SGPT) 310 U/L (8-55); AST (SGOT) 249 U/L (5-34); Albumin 2.1 g/dL (3.5-5.0); Alkaline Phosphatase 68 U/L (40-110); Anion Gap 15 mmol/L (10-20); BUN (Urea Nitrogen) 10 mg/dL (8.9-20.6); Bilirubin, Total 3.8 mg/dL (0.2-1.2); Calc. Creatinine Clearance 164 mL/min (70-130); Carbon Dioxide 20 mmol/L (22-29); Chloride 112 mmol/L (98-107); Globulin 1.4 g/dL (2.4-3.5); Glucose 89 mg/dL (70-105); Potassium 4.5 mmol/L (3.5-5.1); Protein, Total 3.5 g/dL (6.0-8.3); Sodium 142 mmol/L (136-145)
[2020-03-30] MEDS: Pantoprazole 40 MG VIAL IVP SCH ×2 (09:03→21:57)
[2020-03-30] MEDS: Cyanocobalamin (Vitamin B-12) 1,000 MCG TAB PO SCH (09:04)
[2020-03-30] MEDS: Folic Acid 1 MG TAB PO SCH (09:04)
[2020-03-30] MEDS: Thiamine 100 MG TAB PO SCH (09:04)
[2020-03-30] MEDS: Multivitamin W/ Minerals 1 TAB PO SCH (09:04)
[2020-03-30] MEDS: cefTRIAXone\\ROCEPHIN 1 GM in Sodium Chloride 0.9% 100 ML IVPB SCH (09:07)
--- NOTE | 2020-03-30 10:13 | PDOC.HOSPP ---
- Subjective Encounter Date: 03/30/20 Encounter Time: 07:00 Subjective: Patient seen and examined bedside today, this morning patient had unwitnessed fall, patient by himself reports that he did not injure anywhere and he does not have any pain anywhere, when I examined him this morning, all joints were unremarkable, he does not have any bruise on his scalp, he was not complaining any pain, his is present bedside, he appears slightly tachypneic - Objective Vital Signs & Weight: Vital Signs (12 hours) Temp Pulse Resp BP Pulse Ox 03/30/20 04:20 98.7 F 84 20 159/89 H 99 Weight Admit Weight 198 lb Weight 213 lb 2.992 oz Most Recent Monitor Data Heart Rate from ECG 96 NIBP 127/66 NIBP BP-Mean 86 Respiration from ECG 22 SpO2 99 I&O: 03/29/20 03/30/20 03/31/20 06:59 06:59 06:59 Intake Total 3036.8 780 Output Total 2160 750 Balance 876.8 30 Result Diagrams: 03/29/20 04:06 03/30/20 04:29 Radiology Reviewed by me: Yes (We will get chest x-ray today) EKG Reviewed by me: Yes (Sinus rhythm) Hospitalist ROS - Review of Systems Constitutional: reports: weakness, malaise. denies: fever, chills, sweats, other ENT: denies: ear pain, ear discharge, nose pain, nose discharge, nose congestion, mouth pain, mouth swelling, throat pain, throat swelling, other Respiratory: reports: cough, shortness of breath. denies: dry, hemoptysis, SOB with excertion, pleuritic pain, sputum, wheezing, other Cardiovascular: denies: chest pain, palpitations, orthopnea, paroxysmal noc. dyspnea, edema, light headedness, other Gastrointestinal: denies: nausea, vomiting, abdominal pain, diarrhea, constipation, melena, hematochezia, other Genitourinary: denies: dysuria, frequency, incontinence, hematuria, retention, other Musculoskeletal: denies: neck pain, shoulder pain, arm pain, back pain, hand pain, leg pain, foot pain, other - Medication Medications: Active Medications Generic Name Dose Route Start Last Admin Trade Name Freq PRN Reason Stop Dose Admin Cyanocobalamin 1,000 mcg 03/29/20 09:00 03/30/20 09:04 Cyanocobalamin (Vitamin B-12) 1,000 Mcg Tab PO 1,000 mcg DAILY PATRICK Administration Folic Acid 1 mg 03/25/20 09:00 03/30/20 09:04 Folic Acid 1 Mg Tab PO 1 mg DAILY PATRICK Administration Ceftriaxone Sodium 1 gm/ 100 mls @ 200 mls/hr 03/29/20 08:00 03/30/20 09:07 Sodium Chloride IVPB 100 mls Q24HR PATRICK Administration Iron/Minerals/Multivitamins 1 tab 03/29/20 09:00 03/30/20 09:04 Multivitamin W/ Minerals 1 Tab PO 1 tab DAILY PATRICK Administration Pantoprazole Sodium 40 mg 03/28/20 21:00 03/30/20 09:03 Pantoprazole 40 Mg Vial IVP 40 mg BID PATRICK Administration Thiamine HCl 100 mg 03/29/20 09:00 03/30/20 09:04 Thiamine 100 Mg Tab PO 100 mg DAILY PATRICK Administration - Exam General Appearance: NAD, awake alert Eye: PERRL, anicteric sclera ENT: normocephalic atraumatic, no oropharyngeal lesions Neck: supple, symmetric, no JVD, no thyromegaly Heart: RRR, no murmur, no gallops, no rubs Respiratory: tachypneic Respiratory - other findings: Air entry reduced at base Gastrointestinal: soft, non-tender, non-distended, normal bowel sounds Extremities: no clubbing, 1+ LE edema Skin: normal turgor, no lesions Neurological - other findings: He moves all 4 limbs, no tremor, no asterixis Musculoskeletal: normal tone, normal strength Psychiatric: normal affect, normal behavior, A&O x 3 Hosp A/P (1) Acute GI bleeding Code(s): K92.2 - GASTROINTESTINAL HEMORRHAGE, UNSPECIFIED Status: Resolved (2) Hemorrhagic shock Code(s): R57.8 - OTHER SHOCK Status: Resolved (3) Anemia due to acute blood loss Code(s): D62 - ACUTE POSTHEMORRHAGIC ANEMIA Status: Acute Plan: S/p 6 unit transfusion, subsequent stable H&H (4) Respiratory failure requiring intubation Code(s): J96.90 - RESPIRATORY FAILURE, UNSP, UNSP W HYPOXIA OR HYPERCAPNIA Status: Resolved (5) Shock liver Code(s): K72.00 - ACUTE AND SUBACUTE HEPATIC FAILURE WITHOUT COMA Status: Acut e Plan: LFT improving, follow-up on send out test result (6) Hypokalemia Code(s): E87.6 - HYPOKALEMIA Status: Resolved (7) Hypomagnesemia Code(s): E83.42 - HYPOMAGNESEMIA Status: Resolved (8) Acute kidney failure Status: Resolved (9) Metabolic acidosis Code(s): E87.2 - ACIDOSIS Status: Resolved (10) Coagulopathy Status: Acute (11) Alcoholic cirrhosis of liver Code(s): K70.30 - ALCOHOLIC CIRRHOSIS OF LIVER WITHOUT ASCITES Status: Chronic Qualifiers: Ascites presence: unspecified Qualified Code(s): K70.30 - Alcoholic cirrhosis of liver without ascites (12) Obesity (BMI 30.0-34.9) Code(s): E66.9 - OBESITY, UNSPECIFIED Status: Chronic - Plan old records reviewed/req, plan discussed w/ family, PT/OT, oncology social work, DVT proph w/SCDs Ultrasound abdomen reviewed, no obvious ascites Continue PT OT and consider rehab evaluation based on his level of deconditioning Discussed with the patient's Given leukocytosis and patient has cough and tachypnea I will order chest x-ray Continue Rocephin Continue IV Protonix His H&H remained stable and his LFT is improving Medication reviewed and continue provide symptomatic and supportive care
[2020-03-30 10:49] VITALS: BMI 34.4
--- NOTE | 2020-03-30 11:19 | RAD ---
EXAM: Two views chest PROVIDED CLINICAL HISTORY: Dyspnea. COMPARISON: 03/28/2020 FINDINGS: Cardiac silhouette is magnified by patient rotation to the right but is stable in size. Pulmonary vas culature is within normal limits. Linear density is seen in the right middle lobe adjacent to the minor fissure which may represent mild scarring or atelectasis.. Parenchymal opacity right lung base seen on the prior study has resolved. The left lung remains clear. Endotracheal tube and left-sided vascular catheter have been removed. No other interval change IMPRESSION: Resolution of parenchymal opacity right lung base with linear density seen at the right lung base lik jayce due to linear scarring versus atelectasis..
--- NOTE | 2020-03-30 11:51 | PDOC.PALPN ---
Palliative Progress Note - Subjective Transferred to Tele. Sitter at bedside as well as . Fall this forming, no injury. Lethargic, but oriented. - Objective Vital Signs: Vital Signs - Most Recent Temp Pulse Resp BP Pulse Ox 97.7 F 78 26 H 119/55 L 96 03/30/20 09:00 03/30/20 09:00 03/30/20 09:00 03/30/20 09:00 03/30/20 09:10 - Physical Exam Constitutional: NAD, ill appearing HEENT: EOMI, moist MMs Respiratory: no wheezing, unlabored breathing Cardiovascular: RRR Gastrointestinal: soft, non-tender, positive bowel sounds Genitourinary: continent Musculoskeletal: no cyanosis, no clubbing, edema present Neurology: moves all 4 limbs, no focal deficits Skin: cap refill <2 seconds, no lesions, no rash Psychiatric: A&O x 3, flat affect - Assessment (1) Hemorrhagic shock Code(s): R57.8 - OTHER SHOCK Current Visit: Yes Status: Resolved (2) Respiratory failure requiring intubation Code(s): J96.90 - RESPIRATORY FAILURE, UNSP, UNSP W HYPOXIA OR HYPERCAPNIA Current Visit: Yes Status: Resolved (3) Alcoholic cirrhosis of liver Code(s): K70.30 - ALCOHOLIC CIRRHOSIS OF LIVER WITHOUT ASCITES Current Visit: Yes Status: Chronic Qualifiers: Ascites presence: unspecified Qualified Code(s): K70.30 - Alcoholic cirrhosis of liver without ascites (4) Palliative care encounter Code(s): Z51.5 - ENCOUNTER FOR PALLIATIVE CARE Current Visit: Yes Status: Acute - Plan Plan: Withdrawn, mild abdominal distension. Patient does not desire to complete MPOA, Directives to Physician. Does not desire any information on smoking or alcohol cessation. Support given to patient spouse. Palliative care will sign off, please reconsult if we can assist in the future revisiting Goal of care or complex decision making. [25] minutes spent on this encounter with >50% of the time in counseling and coordination of care. - ROS Constitutional: alert, weakness ENT: other (Denies congestion or difficulity swallowing) Respiratory: other (Denies shortness of breath, cough) Gastrointestinal: other (Denies hematochezia, melena, nausea) Genitourinary: other (Denies frequency, hematuria)
[2020-03-30 12:46] LABS: #Basophils 0.1 thou/uL (0.0-0.2); #Eosinphils 0.3 thou/uL (0.0-0.7); #Lymphocytes 2.4 thou/uL (1.20-3.40); #Monocytes 2.8 thou/uL (0.11-0.59); #Neutrophils 14.9 thou/uL (1.40-6.50); %Basophils 0.6 % (0.0-1.0); %Eosinophils 1.5 % (0.0-10.0); %Lymphocytes 11.8 % (21.0-51.0); %Monocytes 13.4 % (0.0-10.0); %Neutrophils 72.7 % (42.0-75.0); Hemoglobin 10.9 g/dL (14.0-18.0); Mean Corpuscular HGB CONC 32.6 g/dL (32.0-36.0); Mean Corpuscular Hemoglobin 32.4 pg (27.0-31.0); Mean Corpuscular Volume 99.2 fL (78.0-98.0); Mean Platelet Volume 9.2 fL (7.4-10.4); Platelet Count 183 thou/uL (130-400); RBC Distribution Width 15.7 % (11.5-14.5); Red Blood Cell (RBC) Count 3.35 mill/uL (4.70-6.10); White Blood Cell (WBC) Count 20.5 thou/uL (4.8-10.8)
--- NOTE | 2020-03-30 18:29 | PRG ---
DATE OF SERVICE: 03/30/2020 SUBJECTIVE: Mr. Puga is a little more talkative today. He states he has been having some diarrhea. Apparently, he had some confusion last night. OBJECTIVE: VITAL SIGNS: Temperature is 98, pulse 90, blood pressure is 120/62. GENERAL: He is lying in bed. His is at the bedside. He does have a sitter in the room. LUNGS: Clear. HEART: Regular without clicks or murmurs. ABDOMEN: Protuberant. Shifting dullness. There is no rebound. There is no guarding. LABORATORY DATA: White count 20,000 today and it was 13,000 on the , hemoglobin is 10.9, platelets 193. Sodium 142, potassium 4.5, BUN and creatinine 10 and 0.7, bilirubin is come down to 3.8 from 6.1, AST 249, ALT 310, protein 3.5, albumin 2.1. Ceruloplasmin normal at 21. Alpha-1 antitrypsin pending. AFP 2.6. IgG normal. Smooth muscle pending. Hepatitis A, B and C negative. MICROBIOLOGY: Blood cultures negative. ASSESSMENT: 1. Shock liver, improving. 2. Gastrointestinal hemorrhage secondary to ulcerative esophagitis. No further bleeding. 3. Cirrhosis likely alcohol related. Workup so far. 4. Recent confusion. There is no overt asterixis and his ammonia was 55 yesterday. This may have been more ing. 5. Complaints of diarrhea. RECOMMENDATIONS: 1. Continue to follow LFTs until improved. 2. Low-sodium diet. Can consider low-dose diuretics. 3. Multivitamin, thiamine, and folate. 4. Hold lactulose if he is having diarrhea. 5. Check his stool for Clostridium difficile. He has been on antibiotics since he came in. Job ID: [id number]
[2020-03-31 04:56] LABS: #Basophils 0.1 thou/uL (0.0-0.2); #Eosinphils 0.2 thou/uL (0.0-0.7); #Lymphocytes 2.5 thou/uL (1.20-3.40); #Monocytes 2.6 thou/uL (0.11-0.59); #Neutrophils 16.2 thou/uL (1.40-6.50); %Basophils 0.4 % (0.0-1.0); %Eosinophils 1.1 % (0.0-10.0); %Lymphocytes 11.6 % (21.0-51.0); %Monocytes 12.2 % (0.0-10.0); %Neutrophils 74.7 % (42.0-75.0); Hemoglobin 11.6 g/dL (14.0-18.0); Mean Corpuscular HGB CONC 33.5 g/dL (32.0-36.0); Mean Corpuscular Hemoglobin 32.9 pg (27.0-31.0); Mean Corpuscular Volume 98.3 fL (78.0-98.0); Mean Platelet Volume 9.2 fL (7.4-10.4); Platelet Count 214 thou/uL (130-400); RBC Distribution Width 16.3 % (11.5-14.5); Red Blood Cell (RBC) Count 3.51 mill/uL (4.70-6.10); White Blood Cell (WBC) Count 21.6 thou/uL (4.8-10.8)
[2020-03-31 05:36] LABS: ALT (SGPT) 454 U/L (8-55); AST (SGOT) 306 U/L (5-34); Albumin 3.2 g/dL (3.5-5.0); Alkaline Phosphatase 155 U/L (40-110); Anion Gap 17 mmol/L (10-20); BUN (Urea Nitrogen) 9 mg/dL (8.9-20.6); Bilirubin, Total 5.7 mg/dL (0.2-1.2); Calc. Creatinine Clearance 149 mL/min (70-130); Calcium 8.6 mg/dL (7.8-10.44); Carbon Dioxide 19 mmol/L (22-29); Chloride 109 mmol/L (98-107); Glucose 95 mg/dL (70-105); Potassium 3.5 mmol/L (3.5-5.1); Protein, Total 6.2 g/dL (6.0-8.3); Sodium 141 mmol/L (136-145)
[2020-03-31] MEDS: Pantoprazole 40 MG VIAL IVP SCH (08:02)
[2020-03-31] MEDS: Folic Acid 1 MG TAB PO SCH (08:02)
[2020-03-31] MEDS: Cyanocobalamin (Vitamin B-12) 1,000 MCG TAB PO SCH (08:02)
[2020-03-31] MEDS: Thiamine 100 MG TAB PO SCH (08:02)
[2020-03-31] MEDS: Multivitamin W/ Minerals 1 TAB PO SCH (08:02)
[2020-03-31] MEDS: cefTRIAXone\\ROCEPHIN 1 GM in Sodium Chloride 0.9% 100 ML IVPB SCH (08:04)
[2020-03-31] MEDS: Cholecalciferol 1,000 UNITS (25 MCG) TAB PO SCH (08:04)
[2020-03-31] MEDS: Furosemide 20 MG TAB PO SCH ×2 (08:05→15:09)
[2020-03-31] MEDS: Saccharomyces boulardii 250 MG CAP PO SCH (08:05)
--- NOTE | 2020-03-31 09:52 | PDOC.HOSPP ---
- Subjective Encounter Date: 03/31/20 Encounter Time: 07:00 Subjective: Patient seen and examined bedside today, no overnight event, today his stool studies showed antigen positive and toxin negative for C. difficile - Objective Vital Signs & Weight: Vital Signs (12 hours) Temp Pulse Resp BP Pulse Ox 03/31/20 08:20 99 03/31/20 07:30 98.8 F 89 22 H 109/54 L 99 03/31/20 04:00 99.5 F 89 18 120/60 99 Weight Admit Weight 198 lb Weight 212 lb 1.355 oz Most Recent Monitor Data Heart Rate from ECG 96 NIBP 127/66 NIBP BP-Mean 86 Respiration from ECG 22 SpO2 99 I&O: 03/30/20 03/31/20 04/01/20 06:59 06:59 06:59 Intake Total 780 2200 Output Total 750 Balance 30 2200 Result Diagrams: 03/31/20 04:26 03/31/20 04:26 EKG Reviewed by me: Yes Hospitalist ROS - Review of Systems Constitutional: reports: weakness, malaise. denies: fever, chills, sweats, other ENT: denies: ear pain, ear discharge, nose pain, nose discharge, nose congestion , mouth pain, mouth swelling, throat pain, throat swelling, other Respiratory: denies: cough, dry, shortness of breath, hemoptysis, SOB with excertion, pleuritic pain, sputum, wheezing, other Cardiovascular: denies: chest pain, palpitations, orthopnea, paroxysmal noc. dyspnea, edema, light headedness, other Gastrointestinal: reports: diarrhea. denies: nausea, vomiting, abdominal pain, constipation, melena, hematochezia, other Genitourinary: denies: dysuria, frequency, incontinence, hematuria, retention, other Musculoskeletal: denies: neck pain, shoulder pain, arm pain, back pain, hand pain, leg pain, foot pain, other - Medication Medications: Active Medications Generic Name Dose Route Start Last Admin Trade Name Freq PRN Reason Stop Dose Admin Cholecalciferol 5,000 units 03/31/20 09:00 03/31/20 08:04 Cholecalciferol 1,000 Units (25 Mcg) Tab PO 5,000 units DAILY PATRICK Administration Cyanocobalamin 1,000 mcg 03/29/20 09:00 03/31/20 08:02 Cyanocobalamin (Vitamin B-12) 1,000 Mcg Tab PO 1,000 mcg DAILY PATRCIK Administration Folic Acid 1 mg 03/25/20 09:00 03/31/20 08:02 Folic Acid 1 Mg Tab PO 1 mg DAILY PATRICK Administration Furosemide 20 mg 03/31/20 09:00 03/31/20 08:05 Furosemide 20 Mg Tab PO 20 mg 0900,1400 PATRICK Administration Iron/Minerals/Multivitamins 1 tab 03/29/20 09:00 03/31/20 08:02 Multivitamin W/ Minerals 1 Tab PO 1 tab DAILY PATRICK Administration Saccharomyces Boulardii 250 mg 03/31/20 09:00 03/31/20 08:05 Saccharomyces Boulardii 250 Mg Cap PO 250 mg DAILY PATRICK Administration Thiamine HCl 100 mg 03/29/20 09:00 03/31/20 08:02 Thiamine 100 Mg Tab PO 100 mg DAILY PATRICK Administration - Exam General Appearance: NAD, awake alert Eye: PERRL, scleral icterus ENT: normocephalic atraumatic, no oropharyngeal lesions Neck: supple, symmetric, no JVD, no thyromegaly Heart: RRR, no murmur, no gallops, no rubs Respiratory: no wheezes, no rales, no ronchi Gastrointestinal: soft, non-tender, non-distended, normal bowel sounds Extremities: no cyanosis, 1+ LE edema Skin: normal turgor, no lesions Neurological: no focal deficits Musculoskeletal: normal tone, normal strength Psychiatric: normal affect, normal behavior, A&O x 3 Hosp A/P (1) Acute GI bleeding Code(s): K92.2 - GASTROINTESTINAL HEMORRHAGE, UNSPECIFIED Status: Resolved (2) Hemorrhagic shock Code(s): R57.8 - OTHER SHOCK Status: Resolved (3) Anemia due to acute blood loss Code(s): D62 - ACUTE POSTHEMORRHAGIC ANEMIA Status: Resolved (4) Respiratory failure requiring intubation Code(s): J96.90 - RESPIRATORY FAILURE, UNSP, UNSP W HYPOXIA OR HYPERCAPNIA Status: Resolved (5) Shock liver Code(s): K72.00 - ACUTE AND SUBACUTE HEPATIC FAILURE WITHOUT COMA Status: Acute (6) Hypokalemia Code(s): E87.6 - HYPOKALEMIA Status: Resolved (7) Hypomagnesemia Code(s): E83.42 - HYPOMAGNESEMIA Status: Resolved (8) Acute kidney failure Status: Resolved (9) Metabolic acidosis Code(s): E87.2 - ACIDOSIS Status: Resolved (10) Coagulopathy Status: Acute (11) Alcoholic cirrhosis of liver Code(s): K70.30 - ALCOHOLIC CIRRHOSIS OF LIVER WITHOUT ASCITES Status: Chronic Qualifiers: Ascites presence: unspecified Qualified Code(s): K70.30 - Alcoholic cirrhosis of liver without ascites (12) Obesity (BMI 30.0-34.9) Code(s): E66.9 - OBESITY, UNSPECIFIED Status: Chronic (13) C. difficile diarrhea Code(s): A04.72 - ENTEROCOLITIS D/T CLOSTRIDIUM DIFFICILE, NOT SPCF RECUR Status: Acute - Plan old records reviewed/req, plan discussed w/ family, PT/OT Discontinue Rocephin Add vancomycin to 50 mg p.o. every 6 hourly Repeat labs tomorrow Discontinue telemetry and transfer to medical floor Continue PT OT Discussed with the patient and his Counseling provided to avoid alcohol abuse Change Protonix p.o. Expecting discharge soon depending upon his strength Patient does not have any benefit of going to rehab or snf home and have patient by himself wants to go home on discharge Add p.o. Lasix
[2020-03-31] MEDS ORDERED: Iopamidol-370 76% 500 ML 1 ML ONE (10:58)
[2020-03-31] MEDS: Vancomycin HCl 25 MG/ML Oral PO SCH ×3 (12:01→23:48)
--- NOTE | 2020-03-31 14:26 | EKG ---
Test Reason : Blood Pressure : / mmHG Vent. Rate : 104 BPM Atrial Rate : 107 BPM P-R Int : 000 ms QRS Dur : 102 ms QT Int : 362 ms P-R-T Axes : 000 034 -48 degrees QTc Int : 476 ms Sinus tachycardia T wave abnormality, consider inferior ischemia Abnormal ECG Confirmed by CLARI MURPHY, BINA ([id number]), editorial director DOUG MOBLEY ([id number]) on 03/31/2020 2:25:50 PM Referred By: Confirmed By:BINA MONTAGUE MD
[2020-03-31] MEDS: metroNIDAZOLE 500 MG in Premix Bag 1 BAG IVPB SCH ×2 (15:13→21:19)
[2020-03-31 16:03] LABS: ANA Symphony (Qualitative) Negative (Negative); ANA Symphony (Quantitative) 0.2 Ratio (< 0.7 Negative); EliA Vaculitis New Method **** NEW METHOD ****; Mitochondrial Ab 1.2 U/mL (<4 Negative); dsDNA IgG Antibody 0.6 IU/mL (<10 Negative)
--- NOTE | 2020-03-31 16:35 | PRG ---
DATE OF SERVICE: 03/31/2020 SUBJECTIVE: Mr. Puga is much more awake today. He is actually up walking around and walked to the bathroom. It is the first time I have seen him out of the bed. Nurse did note he did have a fall last evening. He has had no confusion as he did yesterday. He does complain of right-sided abdominal pain in the mid abdomen and going over his umbilicus and he just feels very tight. He also notes tenderness at the umbilicus. He is having bowel movements. He has had no vomiting. He is voiding. MEDICATIONS: 1. Calcium. 2. Calciferol. 3. Cyanocobalamin. 4. Folic acid. 5. Furosemide 20 b.i.d. 6. Hydralazine p.r.n. 7. Lactulose p.r.n. 8. Loperamide p.r.n. 9. Claritin. 10. He has been started on vancomycin for positive C difficile. 11. Thiamine. 12. Multivitamin. 13. Folate. 14. Senna. 15. Protonix 40 p.o. b.i.d. 16. Zofran. PHYSICAL EXAMINATION: VITAL SIGNS: Pulse is 106, it was 89 earlier today, respirations 24, blood pressure is 141/79. GENERAL: He is much more alert and looks much better. LUNGS: Clear. HEART: Regular rate and rhythm without clicks or murmurs. ABDOMEN: Tight. He has umbilical hernia. It is reducible, but it is tender. He has right-sided abdominal pain, but no chuyita Ocampo sign as dull to percussion. EXTREMITIES: Reveal trace edema. LABORATORY DATA: Sodium 141, potassium 3.5, chloride 109, bicarb 19. BUN and creatinine 19 and 0.85. Creatinine on admission was 4. Bilirubin has gone back up to 5 today from 3.8 yesterday. AST is 306, ALT is 454, alkaline phosphatase is 155, protein 6.2, albumin 3.2. Ceruloplasmin was normal. AFP was normal. Lipase was normal on admission. Hepatitis panel was negative. Alpha antitrypsin is pending. Smooth muscle antibodies pending. Stool positive for C difficile. ASSESSMENT: 1. With diarrhea was ordered, was positive for C difficile. He has been started on vancomycin. We will add Flagyl. I agree with stopping other antibiotics. 2. Gastrointestinal bleed secondary to severe erosive esophagitis, stable. 3. Worsening abdominal distention. Ultrasound on the was not helpful as from body habitus and gas, they feel the gallbladder was distended and mentioned a small amount of pericholecystic fluid. No signs of cholelithiasis. There was incapable amount of fluid. He had a CAT scan on admission on the , there will be a patent portal vein. There was no IV contrast though, really could not make out much else. He had no ascites on exam. I did not see him then, but he reports he was not as distended then. With this distention, worsening leukocytosis, SBP will be a consideration for toxic megacolon. He is having bowel movements as that seems less likely. He became a little bit tachycardic today. I think we need to go ahead and get him a CAT scan with contrast as his renal function is improved. We will hold antidiarrheals and lactulose. If there is concern about a thick gallbladder, next step would be a HIDA scan be a poor candidate for cholecystectomy. 4. Repeat labs in the morning. Continue present medicines otherwise. Job ID: [id number]
[2020-03-31 17:10] LABS: Smooth Muscle Total ABS 6 Units (0-19)
--- NOTE | 2020-03-31 19:34 | CT ---
CT ABDOMEN AND PELVIS WITH ORAL AND IV CONTRAST: 03/31/20 HISTORY: Leukocytosis, distention of the abdomen. Cirrhosis of the liver. C-diff infection. FINDINGS: Comparison is made with a noncontrasted exam of 03/24/20. There are small bilateral pleural effusions. There is a significant amount of free fluid in the abdom en and pelvis consistent with ascites. No hepatic mass or abnormal biliary ductal dilatation is seen . There is irregularity of the surface of the liver suspicious for cirrhosis. No calcified gallstones are noted. The gallbladder is distended. The spleen, pancreas, adrenal glands and kidneys are normal . No evidence of portal venous thrombosis is seen. The spleen was not enlarged and measures 11 cm in length. No free air or retroperitoneal lymphadenopathy is seen. There is a 1 cm periportal lymph node. There is a fat containing right periumbilical hernia. The small bowel loops are not abnormally dilated. The re is colonic diverticulosis. Small fat containing inguinal hernia is present. There are vascular calcifications without evidence of aneurysmal dilatation of the abdominal aorta. T here are degenerative changes in the spine. IMPRESSION: 1. Small bilateral pleural effusions. 2. Ascites. 3. Findings are suspicious for cirrhosis of the liver. 4. Gallbladder distention. 5. Colonic diverticulosis. POS: OFF
[2020-03-31] MEDS: Nicotine 14 MG PATCH TD SCH (20:18)
[2020-04-01] MEDS: metroNIDAZOLE 500 MG in Premix Bag 1 BAG IVPB SCH ×3 (05:34→21:24)
[2020-04-01] MEDS: Vancomycin HCl 25 MG/ML Oral PO SCH ×4 (05:34→23:26)
[2020-04-01 05:43] LABS: #Basophils 0.1 thou/uL (0.0-0.2); #Eosinphils 0.2 thou/uL (0.0-0.7); #Lymphocytes 2.9 thou/uL (1.20-3.40); #Monocytes 2.2 thou/uL (0.11-0.59); #Neutrophils 16.7 thou/uL (1.40-6.50); %Basophils 0.4 % (0.0-1.0); %Eosinophils 0.7 % (0.0-10.0); %Monocytes 9.9 % (0.0-10.0); %Neutrophils 75.9 % (42.0-75.0); Hemoglobin 10.8 g/dL (14.0-18.0); Mean Corpuscular HGB CONC 33.8 g/dL (32.0-36.0); Mean Corpuscular Volume 97.8 fL (78.0-98.0); Mean Platelet Volume 9.4 fL (7.4-10.4); Platelet Count 220 thou/uL (130-400); RBC Distribution Width 16.3 % (11.5-14.5); Red Blood Cell (RBC) Count 3.27 mill/uL (4.70-6.10)
[2020-04-01 05:46] LABS: INR-International Normal Ratio 1.2; Prothrombin Time 15.4 sec (12.0-14.7)
[2020-04-01 06:04] LABS: ALT (SGPT) 341 U/L (8-55); AST (SGOT) 211 U/L (5-34); Albumin 3.1 g/dL (3.5-5.0); Alkaline Phosphatase 136 U/L (40-110); Anion Gap 15 mmol/L (10-20); BUN (Urea Nitrogen) 9 mg/dL (8.9-20.6); Bilirubin, Total 5.5 mg/dL (0.2-1.2); Calc. Creatinine Clearance 151 mL/min (70-130); Calcium 8.5 mg/dL (7.8-10.44); Carbon Dioxide 20 mmol/L (22-29); Chloride 109 mmol/L (98-107); Glucose 112 mg/dL (70-105); Lipase 188 U/L (8-78); Potassium 3.6 mmol/L (3.5-5.1); Protein, Total 6.1 g/dL (6.0-8.3); Sodium 140 mmol/L (136-145)
[2020-04-01] MEDS ORDERED: Spironolactone 100 MG TAB PO SCH (08:00)
--- NOTE | 2020-04-01 10:35 | PDOC.HOSPP ---
- Subjective Encounter Date: 04/01/20 Encounter Time: 07:50 Subjective: Patient is overall feeling better, he is able to go to bathroom by himself, last week, he has abdominal distention but no abdominal pain, his diarrhea improving, no fever, is present bedside - Objective Vital Signs & Weight: Vital Signs (12 hours) Temp Pulse Resp BP BP BP Pulse Ox 04/01/20 07:45 91 L 04/01/20 07:37 98.1 F 113 H 20 127/80 99 04/01/20 03:36 98.1 F 90 18 113/70 98 03/31/20 23:28 98.2 F 78 18 137/79 99 Weight Admit Weight 198 lb Weight 212 lb 1.355 oz Most Recent Monitor Data Heart Rate from ECG 96 NIBP 127/66 NIBP BP-Mean 86 Respiration from ECG 22 SpO2 99 I&O: 03/31/20 04/01/20 04/02/20 06:59 06:59 06:59 Intake Total 2200 900 Balance 2200 900 Result Diagrams: 04/01/20 05:25 04/01/20 05:25 Radiology Reviewed by me: Yes (CT abdomen and pelvis report reviewed) Hospitalist ROS - Review of Systems Constitutional: reports: weakness. denies: fever, chills, sweats, malaise, other Respiratory: reports: SOB with excertion. denies: cough, dry, shortness of breath, hemoptysis, pleuritic pain, sputum, wheezing, other Cardiovascular: denies: chest pain, palpitations, orthopnea, paroxysmal noc. dyspnea, edema, light headedness, other Gastrointestinal: denies: nausea, vomiting, abdominal pain, diarrhea, constipation, melena, hematochezia, other Genitourinary: denies: dysuria, frequency, incontinence, hematuria, retention, other Musculoskeletal: denies: neck pain, shoulder pain, arm pain, back pain, hand pain, leg pain, foot pain, other Skin: denies: rash, lesions, hayde, bruising, other - Medication Medications: Active Medications Generic Name Dose Route Start Last Admin Trade Name Freq PRN Reason Stop Dose Admin Cholecalciferol 5,000 units 03/31/20 09:00 03/31/20 08:04 Cholecalciferol 1,000 Units (25 Mcg) Tab PO 5,000 units DAILY PATRICK Administration Cyanocobalamin 1,000 mcg 03/29/20 09:00 03/31/20 08:02 Cyanocobalamin (Vitamin B-12) 1,000 Mcg Tab PO 1,000 mcg DAILY PATRICK Administration Folic Acid 1 mg 03/25/20 09:00 03/31/20 08:02 Folic Acid 1 Mg Tab PO 1 mg DAILY PATRICK Administration Furosemide 20 mg 03/31/20 09:00 03/31/20 15:09 Furosemide 20 Mg Tab PO 20 mg 0900,1400 PATRICK Administration Metronidazole 500 mg/ Device 100 mls @ 100 mls/hr 03/31/20 14:00 04/01/20 05:34 IVPB 100 mls Q8HR PATRICK Administration Iron/Minerals/Multivitamins 1 tab 03/29/20 09:00 03/31/20 08:02 Multivitamin W/ Minerals 1 Tab PO 1 tab DAILY PATRICK Administration Nicotine 14 mg 03/31/20 21:00 03/31/20 20:18 Nicotine 14 Mg Patch TD 14 mg Q24HR PATRICK Administration Ondansetron HCl 4 mg 03/24/20 11:53 03/31/20 18:02 Ondansetron Pf 4 Mg/2 Ml Vial IVP 4 mg Q6H PRN Administration Nausea/Vomiting Pantoprazole Sodium 40 mg 03/31/20 21:00 03/31/20 20:18 Pantoprazole 40 Mg Tab PO 40 mg BID PATRICK Administration Saccharomyces Boulardii 250 mg 03/31/20 09:00 03/31/20 08:05 Saccharomyces Boulardii 250 Mg Cap PO 250 mg DAILY PATRICK Administration Thiamine HCl 100 mg 03/29/20 09:00 03/31/20 08:02 Thiamine 100 Mg Tab PO 100 mg DAILY PATRICK Administration Vancomycin HCl 250 mg 03/31/20 12:00 04/01/20 05:34 Vancomycin Hcl 25 Mg/Ml Oral PO 250 mg Q6HR PATRICK Administration - Exam General Appearance: NAD, awake alert Eye: scleral icterus ENT: normocephalic atraumatic, no oropharyngeal lesions Neck: supple, symmetric, no JVD Heart: RRR, no murmur, no gallops, no rubs Respiratory: no wheezes, no rales, no ronchi Gastrointestinal: soft Gastrointestinal - other findings: Obesity noted Extremities: no cyanosis, no clubbing, 1+ LE edema Skin: normal turgor, no lesions Neurological: no focal deficits Musculoskeletal: normal tone, normal strength Psychiatric: normal affect, normal behavior Hosp A/P (1) Acute GI bleeding Code(s): K92.2 - GASTROINTESTINAL HEMORRHAGE, UNSPECIFIED Status: Resolved (2) Hemorrhagic shock Code(s): R57.8 - OTHER SHOCK Status: Resolved (3) Anemia due to acute blood loss Code(s): D62 - ACUTE POSTHEMORRHAGIC ANEMIA Status: Resolved (4) Respiratory failure requiring intubation Code(s): J96.90 - RESPIRATORY FAILURE, UNSP, UNSP W HYPOXIA OR HYPERCAPNIA Status: Resolved (5) Shock liver Code(s): K72.00 - ACUTE AND SUBACUTE HEPATIC FAILURE WITHOUT COMA Status: Acu te (6) Hypokalemia Code(s): E87.6 - HYPOKALEMIA Status: Resolved (7) Hypomagnesemia Code(s): E83.42 - HYPOMAGNESEMIA Status: Resolved (8) Acute kidney failure Status: Resolved (9) Metabolic acidosis Code(s): E87.2 - ACIDOSIS Status: Resolved (10) Coagulopathy Status: Acute (11) Alcoholic cirrhosis of liver Code(s): K70.30 - ALCOHOLIC CIRRHOSIS OF LIVER WITHOUT ASCITES Status: Chronic Qualifiers: Ascites presence: unspecified Qualified Code(s): K70.30 - Alcoholic cirrhosis of liver without ascites (12) Obesity (BMI 30.0-34.9) Code(s): E66.9 - OBESITY, UNSPECIFIED Status: Chronic (13) C. difficile diarrhea Code(s): A04.72 - ENTEROCOLITIS D/T CLOSTRIDIUM DIFFICILE, NOT SPCF RECUR Status: Acute (14) Leukocytosis Code(s): D72.829 - ELEVATED WHITE BLOOD CELL COUNT, UNSPECIFIED Status: Acute (15) Physical deconditioning Code(s): R53.81 - OTHER MALAISE Status: Acute - Plan old records reviewed/req, continue antibiotics, PT/OT, incentive spirometry, DVT proph w/SCDs Continue vancomycin 250 mg p.o. every 6 hourly and Flagyl 5 mg IV every 8 hourly Gastroenterology recommendation appreciated, patient is plan for HIDA scan for evaluation for his gallbladder distention Repeat labs tomorrow Continue PT OT Discussed with the patient and his Counseling provided to avoid alcohol abuse Continue medication as ordered,
[2020-04-01] MEDS: Multivitamin W/ Minerals 1 TAB PO SCH (11:51)
[2020-04-01] MEDS: Saccharomyces boulardii 250 MG CAP PO SCH (11:51)
[2020-04-01] MEDS: Cholecalciferol 1,000 UNITS (25 MCG) TAB PO SCH (11:52)
[2020-04-01] MEDS: Furosemide 20 MG TAB PO SCH ×2 (11:53→14:40)
[2020-04-01] MEDS: Cyanocobalamin (Vitamin B-12) 1,000 MCG TAB PO SCH (11:53)
[2020-04-01] MEDS: Folic Acid 1 MG TAB PO SCH (11:54)
[2020-04-01] MEDS: Thiamine 100 MG TAB PO SCH (11:54)
--- NOTE | 2020-04-01 12:42 | NM ---
NM Hida Scan W Drug History: Leukocytosis. Distended gallbladder Comparison: CT prior day Findings: Imaging of the abdomen was performed after intravenous administration 5.5 mCi technetium 99 m mebrofenin. The patient was pretreated with 1.9 mcg of CCK intravenously 30 minutes prior to initial imaging. Adequate hepatic uptake of radiotracer. Gallbladder is seen quickly. Ejection fraction measures 63%. Impression: Normal gallbladder ejection fraction.
--- NOTE | 2020-04-01 18:18 | PRG ---
DATE OF SERVICE: 04/01/2020 SUBJECTIVE: Mr. Puga feels better today. He still feels distended. OBJECTIVE: VITAL SIGNS: T-max 99; pulse was 113 this morning it is down to 72 now; blood pressure 133/80. LUNGS: Clear. ABDOMEN: Still distended, tympanitic. Patient has an umbilical hernia, which is not discolored and reducible. Abdomen is softer than yesterday. LABORATORY DATA: White count remains elevated at 22,000, hemoglobin 10.8, platelet count 220. INR 1.2. Sodium 140, potassium 3.6, BUN and creatinine 9 and 0.83, bilirubin is 5.5, AST 211, ALT 341, alkaline phosphatase 137. Lipase 188. CT scan from yesterday did not show any overt gallstones. There was gallbladder distention. There was ascites that is not enough to be tapped. HIDA scan today shows normal EF of 63%. ASSESSMENT: 1. Clostridium difficile colitis. No signs of toxic megacolon. Continue IV Flagyl and oral vancomycin. 2. Gastrointestinal hemorrhage, resolved, secondary to severe erosive esophagitis. Continue PPI therapy. 3. Continue probiotics. 4. Abnormal liver function tests. Serology workup for other underlying disease is negative. I suspect to be alcohol related with a component of shock liver from sepsis at presentation. 5. Minimal ascites. We will increase diuretics. PLAN: Continue IV antibiotics. Change Lasix to 40 mg once in the morning and Aldactone to 100 mg once in the morning. We will follow along with you. Job ID: [id number]
[2020-04-01] MEDS: Nicotine 14 MG PATCH TD SCH (21:24)
[2020-04-02 05:30] LABS: #Basophils 0.1 thou/uL (0.0-0.2); #Eosinphils 0.2 thou/uL (0.0-0.7); #Lymphocytes 2.8 thou/uL (1.20-3.40); #Monocytes 1.5 thou/uL (0.11-0.59); #Neutrophils 14.7 thou/uL (1.40-6.50); %Basophils 0.8 % (0.0-1.0); %Lymphocytes 14.6 % (21.0-51.0); %Monocytes 7.6 % (0.0-10.0); %Neutrophils 76.1 % (42.0-75.0); Hemoglobin 10.5 g/dL (14.0-18.0); Mean Corpuscular HGB CONC 33.3 g/dL (32.0-36.0); Mean Corpuscular Volume 99.1 fL (78.0-98.0); Mean Platelet Volume 9.7 fL (7.4-10.4); Platelet Count 215 thou/uL (130-400); RBC Distribution Width 16.6 % (11.5-14.5); Red Blood Cell (RBC) Count 3.18 mill/uL (4.70-6.10); White Blood Cell (WBC) Count 19.3 thou/uL (4.8-10.8)
[2020-04-02] MEDS: Vancomycin HCl 25 MG/ML Oral PO SCH (05:50)
[2020-04-02] MEDS: metroNIDAZOLE 500 MG in Premix Bag 1 BAG IVPB SCH (05:51)
[2020-04-02 05:53] LABS: ALT (SGPT) 280 U/L (8-55); AST (SGOT) 176 U/L (5-34); Alkaline Phosphatase 137 U/L (40-110); Anion Gap 12 mmol/L (10-20); BUN (Urea Nitrogen) 8 mg/dL (8.9-20.6); Calc. Creatinine Clearance 148 mL/min (70-130); Calcium 8.4 mg/dL (7.8-10.44); Carbon Dioxide 21 mmol/L (22-29); Chloride 110 mmol/L (98-107); Globulin 3.2 g/dL (2.4-3.5); Glucose 93 mg/dL (70-105); Potassium 3.8 mmol/L (3.5-5.1); Protein, Total 6.2 g/dL (6.0-8.3); Sodium 139 mmol/L (136-145)
[2020-04-02] MEDS ORDERED: Spironolactone 100 MG TAB PO SCH (08:00)
[2020-04-02] MEDS: Cholecalciferol 1,000 UNITS (25 MCG) TAB PO SCH (08:47)
[2020-04-02] MEDS: Saccharomyces boulardii 250 MG CAP PO SCH (08:47)
[2020-04-02] MEDS: Folic Acid 1 MG TAB PO SCH (08:48)
[2020-04-02] MEDS: Thiamine 100 MG TAB PO SCH (08:48)
[2020-04-02] MEDS: Multivitamin W/ Minerals 1 TAB PO SCH (08:48)
[2020-04-02] MEDS: Cyanocobalamin (Vitamin B-12) 1,000 MCG TAB PO SCH (08:48)
[2020-04-02] MEDS ORDERED: Furosemide 40 MG TAB PO SCH (09:00)
--- NOTE | 2020-04-02 11:16 | PDOC.DS.DS ---
Provider - Provider Date of Admission: 03/24/20 11:56 Date of Discharge: 04/02/20 Admitting Provider: Jesús Umaña MD Consultations: Gastroentrology, Pulmonary Primary Care Physician: Unknown Course - Hospital Course Hospital Course: Patient was admitted on March 24, 2020. On admission patient had chest x-ray which showed no acute process but he had central line placed, in the emergency room patient also had a CT chest abdomen and pelvis which showed no posttraumatic change in chest abdomen or pelvis, fatty liver, fatty infiltration of colonic mucosa. Patient was admitted on March 24, 2020 at that time patient had upper GI bleed, patient had hemorrhagic shock, patient had shock liver and acute kidney failure, COVID-19 was negative, patient also has history of alcohol abuse and he was suspected for alcohol like cirrhosis, patient also had significantly abnormal LFT and renal function, patient also has previous history of chronic NSAID abuse. He was admitted in ICU, he was requiring vasopressor, he was requiring 6 unit of PRBC and a plasma as well as platelet infusion. Patient underwent upper endoscopy by Dr. Regan and found with severe erosive esophagitis and ulceration in the distal esophagus, there was gastritis. But no varices. Octreotide drip discontinued and patient was continued with Protonix drip. Patient was treated for alcohol withdrawal. And subsequently patient was extubated and transferred to telemetry floor and subsequently transferred him to medical floor. We did a HIDA scan which was normal. We also repeated CT abdomen and pelvis and ultrasound which was showing trace ascites. We started L asix and Aldactone. Patient had persistent leukocytosis so we did stress test for C. difficile which came back positive and we started treating with vancomycin and Flagyl with that his leukocytosis improving. While in hospital he is now showing hemodynamic stability and his H&H stable, he is ambulatory and tolerating p.o. well, we have provided patient education about continuous removal of alcohol from his life, Patient will follow up with his PCP as well as gastroenterology. Plan of care discussed with the patient and his bedside today. All new medication prescription sent to his pharmacy. Resuscitation Status: 03/24/20 11:53 Resuscitation Status Routine Resuscitation Status: FULL: Full Resuscitation - Labs Lab Results: 04/02/20 05:07 04/02/20 05:07 Abnormal Lab Results - Last 48 hrs 04/01/20 05:25: Chloride 109 H, Carbon Dioxide 20 L, Total Bilirubin 5.5 H, AST 211 H, ALT 341 H, Alkaline Phosphatase 136 H, Albumin 3.1 L, Albumin/Globulin Ratio 1.0 L, Lipase 188 H 04/01/20 05:25: WBC 22.0 H, RBC 3.27 L, Hgb 10.8 L, Hct 31.9 L, MCH 33.0 H, RDW 16.3 H, Neutrophils % 75.9 H, Lymphocytes % 13.0 L, Neutrophils # 16.7 H, Monocytes # 2.2 H 04/01/20 05:25: PT 15.4 H 04/02/20 05:07: Chloride 110 H, Carbon Dioxide 21 L, BUN 8 L, Total Bilirubin 5.0 H, AST 176 H, ALT 280 H, Alkaline Phosphatase 137 H, Albumin 3.0 L, Albumin/Globulin Ratio 0.9 L 04/02/20 05:07: WBC 19.3 H, RBC 3.18 L, Hgb 10.5 L, Hct 31.5 L, MCV 99.1 H, MCH 33.0 H, RDW 16.6 H, Neutrophils % 76.1 H, Lymphocytes % 14.6 L, Neutrophils # 14.7 H, Monocytes # 1.5 H Microbiology - Entire Visit 03/31/20 00:15 Stool C. difficile GDH Antigen & Toxins - Final 03/31/20 00:15 Stool Clostridioides difficile Toxins A&B (PCR) - Final 03/24/20 10:55 Central Line - Left Subclavian Vein Blood Culture - Final NO GROWTH IN 5 DAYS 03/24/20 09:46 Venous blood - Left Arm Blood Culture - Final NO GROWTH IN 5 DAYS 03/24/20 09:32 Stool - Pending - Final - Physical Exam Vitals: Vital Signs (12 hours) Temp Pulse Resp BP Pulse Ox 04/02/20 07:40 98.7 F 82 18 140/93 H 98 04/02/20 04:00 98.8 F 75 18 136/90 98 04/02/20 00:00 99.1 F 95 18 111/73 98 Weight Admit Weight 198 lb Weight 212 lb 1.355 oz Most Recent Monitor Data Heart Rate from ECG 96 NIBP 127/66 NIBP BP-Mean 86 Respiration from ECG 22 SpO2 99 Physical Exam: The patient was seen and examined on the day of discharge. General patient is currently alert and awake no acute distress Head normocephalic atraumatic Neck supple no JVD no meningeal signs of irritation Lungs clear to auscultation without any rhonchi or rales Cardiac S1-S2 regular, no murmur no gallop no rub Abdomen soft, bowel sounds present, mild distention noted, no peritoneal sign Extremity trace edema noted good distal pulsation Neurologic nonfocal examination no asterixis Hematological system no lymphadenopathy. Problem - Problem (1) Acute GI bleeding Code(s): K92.2 - GASTROINTESTINAL HEMORRHAGE, UNSPECIFIED Status: Resolved (2) Hemorrhagic shock Code(s): R57.8 - OTHER SHOCK Status: Resolved (3) Anemia due to acute blood loss Code(s): D62 - ACUTE POSTHEMORRHAGIC ANEMIA Status: Resolved (4) Respiratory failure requiring intubation Code(s): J96.90 - RESPIRATORY FAILURE, UNSP, UNSP W HYPOXIA OR HYPERCAPNIA Status: Resolved (5) Shock liver Code(s): K72.00 - ACUTE AND SUBACUTE HEPATIC FAILURE WITHOUT COMA Status: Acute (6) Hypokalemia Code(s): E87.6 - HYPOKALEMIA Status: Resolved (7) Hypomagnesemia Code(s): E83.42 - HYPOMAGNESEMIA Status: Resolved (8) Acute kidney failure Status: Resolved (9) Metabolic acidosis Code(s): E87.2 - ACIDOSIS Status: Resolved (10) Coagulopathy Status: Acute (11) Alcoholic cirrhosis of liver Code(s): K70.30 - ALCOHOLIC CIRRHOSIS OF LIVER WITHOUT ASCITES Status: Chronic Qualifiers: Ascites presence: unspecified Qualified Code(s): K70.30 - Alcoholic cirrhosis of liver without ascites (12) Obesity (BMI 30.0-34.9) Code(s): E66.9 - OBESITY, UNSPECIFIED Status: Chronic (13) C. difficile diarrhea Code(s): A04.72 - ENTEROCOLITIS D/T CLOSTRIDIUM DIFFICILE, NOT SPCF RECUR Status: Acute (14) Leukocytosis Code(s): D72.829 - ELEVATED WHITE BLOOD CELL COUNT, UNSPECIFIED Status: Acute (15) Physical deconditioning Code(s): R53.81 - OTHER MALAISE Status: Acute Plan - Discharge Medications Prescriptions: Metronidazole [metroNIDAZOLE] 500 mg PO Q8HR #30 tab Spironolactone [Aldactone] 100 mg PO QAM-WM #30 tab Saccharomyces boulardii [Florastor] 250 mg PO DAILY #30 cap Folic Acid [Folvite] 1 mg PO DAILY #30 tab Furosemide [Lasix] 40 mg PO DAILY #30 tab Pantoprazole [Protonix] 40 mg PO BID #60 tab Multivitamin W/ Minerals [Theragran M] 1 tab PO DAILY #30 tab Thiamine 100 mg PO DAILY #30 tab Vancomycin HCl [Vancocin HCl] 250 mg PO QID #60 capsule Cyanocobalamin (Vitamin B-12) [Vitamin B-12] 1,000 mcg PO DAILY #30 tab Cholecalciferol [Vitamin D3] 5,000 units PO DAILY #150 tab Home Medications: Medication Instructions Recorded Confirmed Type Cholecalciferol [Vitamin D3] 5,000 units PO DAILY #150 tab 04/02/20 Rx Cyanocobalamin (Vitamin B-12) 1,000 mcg PO DAILY #30 tab 04/02/20 Rx [Vitamin B-12] Folic Acid [Folvite] 1 mg PO DAILY #30 tab 04/02/20 Rx Furosemide [Lasix] 40 mg PO DAILY #30 tab 04/02/20 Rx Metronidazole [metroNIDAZOLE] 500 mg PO Q8HR #30 tab 04/02/20 Rx Multivitamin W/ Minerals 1 tab PO DAILY #30 tab 04/02/20 Rx [Theragran M] Pantoprazole [Protonix] 40 mg PO BID #60 tab 04/02/20 Rx Saccharomyces boulardii [Florastor] 250 mg PO DAILY #30 cap 04/02/20 Rx Spironolactone [Aldactone] 100 mg PO QAM-WM #30 tab 04/02/20 Rx Thiamine 100 mg PO DAILY #30 tab 04/02/20 Rx Vancomycin HCl [Vancocin HCl] 250 mg PO QID #60 capsule 04/02/20 Rx Allergies: No Known Drug Allergies Allergy (Verified 03/29/20 07:34) - Discharge Instructions Activity:: Activity as Tolerated Nourishment:: Low Sodium Diet Therapies:: Not Applicable Equipment/Supplies:: Not Applicable IV Therapy:: Not Applicable - Follow up Plan Referrals: Unknown,Unknown [Primary Care Provider] - Sudhir Narvaez MD [Active] - Disposition: HOME Quality - Care Measures CORE MEASURES:: N/A
--- NOTE | 2020-04-02 12:19 | PDOC.HOSPP ---
- Subjective Encounter Date: 04/02/20 Encounter Time: 11:30 Subjective: Patient seen and examined. No new complaints. No overnight events - Objective Vital Signs & Weight: Vital Signs (12 hours) Temp Pulse Resp BP Pulse Ox 04/02/20 07:40 98.7 F 82 18 140/93 H 98 04/02/20 04:00 98.8 F 75 18 136/90 98 Weight Admit Weight 198 lb Weight 212 lb 1.355 oz Most Recent Monitor Data Heart Rate from ECG 96 NIBP 127/66 NIBP BP-Mean 86 Respiration from ECG 22 SpO2 99 I&O: 04/01/20 04/02/20 04/03/20 06:59 06:59 06:59 Intake Total 900 900 Balance 900 900 Result Diagrams: 04/02/20 05:07 04/02/20 05:07 Hospitalist ROS - Review of Systems ENT: denies: ear pain, ear discharge, nose pain, nose discharge, nose congestion, mouth pain, mouth swelling, throat pain, throat swelling, other Respiratory: denies: cough, dry, shortness of breath, hemoptysis, SOB with excertion, pleuritic pain, sputum, wheezing, other Cardiovascular: denies: chest pain, palpitations, orthopnea, paroxysmal noc. dyspnea, edema, light headedness, other Gastrointestinal: denies: nausea, vomiting, abdominal pain, diarrhea, constipation, melena, hematochezia, other Genitourinary: denies: dysuria, frequency, incontinence, hematuria, retention, other - Medication Medications: Active Medications Generic Name Dose Route Start Last Admin Trade Name Freq PRN Reason Stop Dose Admin Cholecalciferol 5,000 units 03/31/20 09:00 04/02/20 08:47 Cholecalciferol 1,000 Units (25 Mcg) Tab PO 5,000 units DAILY PATRICK Administration Cyanocobalamin 1,000 mcg 03/29/20 09:00 04/02/20 08:48 Cyanocobalamin (Vitamin B-12) 1,000 Mcg Tab PO 1,000 mcg DAILY PATRICK Administration Folic Acid 1 mg 03/25/20 09:00 04/02/20 08:48 Folic Acid 1 Mg Tab PO 1 mg DAILY PATRICK Administration Furosemide 40 mg 04/02/20 09:00 04/02/20 08:48 Furosemide 40 Mg Tab PO 40 mg DAILY PATRICK Administration Metronidazole 500 mg/ Device 100 mls @ 100 mls/hr 03/31/20 14:00 04/02/20 05:51 IVPB 100 mls Q8HR PATRICK Administration Iron/Minerals/Multivitamins 1 tab 03/29/20 09:00 04/02/20 08:48 Multivitamin W/ Minerals 1 Tab PO 1 tab DAILY PATRICK Administration Nicotine 14 mg 03/31/20 21:00 04/01/20 21:24 Nicotine 14 Mg Patch TD 14 mg Q24HR PTARICK Administration Ondansetron HCl 4 mg 03/24/20 11:53 03/31/20 18:02 Ondansetron Pf 4 Mg/2 Ml Vial IVP 4 mg Q6H PRN Administration Nausea/Vomiting Pantoprazole Sodium 40 mg 03/31/20 21:00 04/02/20 08:48 Pantoprazole 40 Mg Tab PO 40 mg BID PATRICK Administration Saccharomyces Boulardii 250 mg 03/31/20 09:00 04/02/20 08:47 Saccharomyces Boulardii 250 Mg Cap PO 250 mg DAILY PATRICK Administration Spironolactone 100 mg 04/02/20 08:00 04/02/20 08:48 Spironolactone 100 Mg Tab PO 100 mg QAM-WM PATRICK Administration Thiamine HCl 100 mg 03/29/20 09:00 04/02/20 08:48 Thiamine 100 Mg Tab PO 100 mg DAILY PATRICK Administration Vancomycin HCl 250 mg 03/31/20 12:00 04/02/20 05:50 Vancomycin Hcl 25 Mg/Ml Oral PO 250 mg Q6HR PATRICK Administration - Exam General Appearance: NAD, awake alert Eye: scleral icterus ENT: normocephalic atraumatic, no oropharyngeal lesions Neck: supple, symmetric, no JVD Heart: RRR, no murmur, no gallops Respiratory: no wheezes, no rales, no ronchi Gastrointestinal: soft, non-tender, normal bowel sounds Extremities: no cyanosis, no clubbing, no edema Skin: normal turgor, no lesions Musculoskeletal: normal tone, normal strength Psychiatric: normal affect, normal behavior Hosp A/P (1) Acute GI bleeding Code(s): K92.2 - GASTROINTESTINAL HEMORRHAGE, UNSPECIFIED Status: Resolved (2) Hemorrhagic shock Code(s): R57.8 - OTHER SHOCK Status: Resolved (3) Anemia due to acute blood loss Code(s): D62 - ACUTE POSTHEMORRHAGIC ANEMIA Status: Resolved (4) Respiratory failure requiring intubation Code(s): J96.90 - RESPIRATORY FAILURE, UNSP, UNSP W HYPOXIA OR HYPERCAPNIA Status: Resolved (5) Shock liver Code(s): K72.00 - ACUTE AND SUBACUTE HEPATIC FAILURE WITHOUT COMA Status: Acute (6) Hypokalemia Code(s): E87.6 - HYPOKALEMIA Status: Resolved (7) Hypomagnesemia Code(s): E83.42 - HYPOMAGNESEMIA Status: Resolved (8) Acute kidney failure Status: Resolved (9) Metabolic acidosis Code(s): E87.2 - ACIDOSIS Status: Resolved (10) Coagulopathy Status: Acute (11) Alcoholic cirrhosis of liver Code(s): K70.30 - ALCOHOLIC CIRRHOSIS OF LIVER WITHOUT ASCITES Status: Chronic Qualifiers: Ascites presence: unspecified Qualified Code(s): K70.30 - Alcoholic cirrhosis of liver without ascites (12) Obesity (BMI 30.0-34.9) Code(s): E66.9 - OBESITY, UNSPECIFIED Status: Chronic (13) C. difficile diarrhea Code(s): A04.72 - ENTEROCOLITIS D/T CLOSTRIDIUM DIFFICILE, NOT SPCF RECUR Status: Acute (14) Leukocytosis Code(s): D72.829 - ELEVATED WHITE BLOOD CELL COUNT, UNSPECIFIED Status: Acute (15) Physical deconditioning Code(s): R53.81 - OTHER MALAISE Status: Acute - Plan old records reviewed/req, plan discussed w/ family Patient is medically stable for discharge, All medication given to his pharmacy Please see my discharge summary for more detail, outpatient GI follow-up
[2020-04-02 12:54] VITALS: BP 138/88; TEMP 98.5
[2020-04-03 15:16] LABS: Alpha-1-Antitrypsin 158 mg/dL (101-187)
== END 2020-04-02 12:52 | disposition home or self-care (01) | DRG 380 ==
LOC: ERS 09:01 → CCU 11:56 → 2NO 03-28 17:47 → SJJU 03-31 10:02
PROVIDERS: ADMIT Internal Medicine; ATTEND Internal Medicine
PROC: 02HV33Z Insertion of Infusion Device into Superior Vena Cava, Percutaneous Approach (ICD-10-PCS; principal; 2020-03-24)
PROC: 5A1955Z Respiratory Ventilation, Greater than 96 Consecutive Hours (ICD-10-PCS; 2020-03-24)
PROC: 0BH17EZ Insertion of Endotracheal Airway into Trachea, Via Natural or Artificial Opening (ICD-10-PCS; 2020-03-24)
PROC: 30233L1 Transfusion of Nonautologous Fresh Plasma into Peripheral Vein, Percutaneous Approach (ICD-10-PCS; 2020-03-24)
PROC: 30233N1 Transfusion of Nonautologous Red Blood Cells into Peripheral Vein, Percutaneous Approach (ICD-10-PCS; 2020-03-24)
PROC: 30233R1 Transfusion of Nonautologous Platelets into Peripheral Vein, Percutaneous Approach (ICD-10-PCS; 2020-03-24)
PROC: 30233K1 Transfusion of Nonautologous Frozen Plasma into Peripheral Vein, Percutaneous Approach (ICD-10-PCS; 2020-03-24)
PROC: 3E033XZ Introduction of Vasopressor into Peripheral Vein, Percutaneous Approach (ICD-10-PCS; 2020-03-24)
PROC: 0D9770Z Drainage of Stomach, Pylorus with Drainage Device, Via Natural or Artificial Opening (ICD-10-PCS; 2020-03-24)
PROC: 0DJ08ZZ Inspection of Upper Intestinal Tract, Via Natural or Artificial Opening Endoscopic (ICD-10-PCS; 2020-03-24)
PROC: 0BP1XDZ Removal of Intraluminal Device from Trachea, External Approach (ICD-10-PCS; 2020-03-28)
DX: K22.11 Ulcer of esophagus with bleeding (principal); K72.00 Acute and subacute hepatic failure without coma; R57.8 Other shock; J96.01 Acute respiratory failure with hypoxia; K85.20 Alcohol induced acute pancreatitis without necrosis or infection; N17.9 Acute kidney failure, unspecified; F10.139 Alcohol abuse with withdrawal, unspecified; D62 Acute posthemorrhagic anemia; E87.2 Acidosis; A04.72 Enterocolitis due to Clostridium difficile, not specified as recurrent; D68.4 Acquired coagulation factor deficiency; I24.8 Other forms of acute ischemic heart disease; G93.40 Encephalopathy, unspecified; K70.10 Alcoholic hepatitis without ascites; Z51.5 Encounter for palliative care; Z20.822 Contact with and (suspected) exposure to COVID-19; K70.30 Alcoholic cirrhosis of liver without ascites; E66.9 Obesity, unspecified; M19.90 Unspecified osteoarthritis, unspecified site; K29.70 Gastritis, unspecified, without bleeding; N18.9 Chronic kidney disease, unspecified; E87.6 Hypokalemia; E83.42 Hypomagnesemia; E83.51 Hypocalcemia; Z79.1 Long term (current) use of non-steroidal anti-inflammatories (NSAID); Z68.34 Body mass index [BMI] 34.0-34.9, adult
CPT/HCPCS: 0240U; 31500; 36415; 36416; 36430; 36556; 36600; 51702; 71045; 71046; 71250; 72170; 74177; 78227; 80048; 80053; 80074; 80076; 80143; 80306; 80307; 81001; 81003; 81015; 82103; 82104; 82105; 82140; 82270; 82306; 82390; 82550; 82553; 82570; 82607; 82728; 82746; 82805; 83516; 83540; 83550; 83690; 83735; 83880; 84100; 84300; 84484; 85025; 85060; 85610; 85730; 86038; 86225; 86850; 86900; 86901; 87040; 87324; 87449; 87493; 93005; 93306; 93975; 94002; 94003; 96361; 96365; 96368; 96375; 96376; 99292; A9537; C9113; J0171; J0692; J0696; J1956; J2060; J2270; J2354; J2405; J2704; J3010; J3370; J3411; J3475; J3480; J3490; J7030; J7042; J7050; J7070; P9016; P9035; P9047; P9048; P9059; Q9967